=== PATIENT | female | born 1990 | race Hispanic/Latino ===

== ENCOUNTER 2016-07-11 05:50 | Emergency (ER) | payer BC ==
[2016-07-11 05:56] VITALS: BMI 17.9
[2016-07-11] MEDS ORDERED: Sodium Chloride 0.9% 1,000 ML IV STA (06:14)
[2016-07-11] MEDS ORDERED: Famotidine 20mg/50ml 50 ML IVPB STA (06:16)
--- NOTE | 2016-07-11 06:22 | ED PDOC ---
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 Pain is crampy non radiating. Some nausea. No vomiting. No fever. She also has mid pelvic pain that feels sharp when she urinates with frequency. No back pain. No vaginal bleeding. No diarrhea or constipation. PMD: None Loss Prevention Representative: She sees a doctor at [facility] who confirmed an IUP. Past Medical History - Provider Review Nursing Documentation Reviewed: Yes - Infectious Disease Hx of Infectious Diseases: None - Cardiac Hx Cardiac Disorders: No - Pulmonary Hx Respiratory Disorders: No - Neurological Hx Neurological Disorder: No - HEENT Hx HEENT Disorder: No - Renal Hx Renal Disorder: Yes Other/Comment: BLOOD IN URINE, MSK (medullary sponge kidney) - Endocrine/Metabolic Hx Endocrine Disorders: Yes Other/Comment: Hypoglycemia - Hematological/Oncological Hx Blood Disorders: Yes Other/Comment: Factor XI, Factor XII - Integumentary Hx Dermatological Disorder: No - Musculoskeletal/Rheumatological Hx Musculoskeletal Disorders: No - Gastrointestinal Hx Gastrointestinal Disorders: No Hx Gastroesophageal Reflux: Yes Hx Irritable Bowel: Yes Other/Comment: esophagitis - Genitourinary/Gynecological Hx Genitourinary Disorders: No - Psychiatric Hx Psychophysiologic Disorder: Yes Hx Depression: Yes Hx Panic Disorder: Yes Hx Substance Use: No - Surgical History Hx Appendectomy: Yes Hx Dilation and Curettage: Yes (x2) Other/Comment: CYSTOSCOPY, 2X - Anesthesia Hx Anesthesia: Yes Hx Anesthesia Reactions: No Hx Malignant Hyperthermia: No Family/Social History - Physician Review Nursing Documentation Reviewed: Yes Family/Social History: No Known Family HX Smoking Status: Never Smoked Hx Alcohol Use: No Hx Substance Use: No Allergies/Home Meds Allergies/Adverse Reactions: Allergies amoxicillin Allergy (Verified 05/06/16 15:53) URTICARIA ciprofloxacin [From Cipro] Allergy (Verified 05/06/16 15:53) URTICARIA ciprofloxacin HCl [From Cipro] Allergy (Verified 05/06/16 15:53) URTICARIA doxycycline Allergy (Verified 05/06/16 15:53) URTICARIA Penicillins Allergy (Verified 05/06/16 15:53) URTICARIA phenytoin sodium [From Dilantin] Allergy (Verified 05/06/16 15:53) URTICARIA phenytoin sodium extended [From Dilantin] Allergy (Verified 05/06/16 15:53) URTICARIA sulfamethoxazole [From Bactrim] Allergy (Verified 05/06/16 15:53) URTICARIA trimethoprim [From Bactrim] Allergy (Verified 05/06/16 15:53) URTICARIA Home Medications: Home Meds Medication Instructions Recorded Confirmed QUEtiapine [Seroquel XR] 50 mg PO DAILY 05/06/16 05/06/16 clonazePAM [Klonopin] 0.5 mg PO PRN PRN 05/06/16 05/06/16 Review of Systems - Physician Review All systems were reviewed & negative as marked: Yes - Review of Systems Constitutional: Normal Eyes: Normal ENT: Normal Respiratory: Normal Cardiovascular: Normal Gastrointestinal: Abdominal Pain Genitourinary Female: Dysuria, Frequency. absent: Hematuria, Vaginal Bleeding, Vaginal Discharge Musculoskeletal: Normal. absent: Back Pain Skin: Normal Neurological: Normal Endocrine: Normal Hemo/Lymphatic: Normal Psychiatric: Normal Physical Exam Vital Signs Reviewed: Yes Vital Signs Temp Pulse Resp BP Pulse Ox 07/11/16 06:15 98.1 F 72 16 137/84 98 Temperature: Afebrile Blood Pressure: Normal Pulse: Regular Respiratory Rate: Normal Appearance: Positive for: Well-Appearing, Non-Toxic, Comfortable Pain Distress: None Mental Status: Positive for: Alert and Oriented X 3 - Systems Exam Head: Present: Atraumatic, Normocephalic Pupils: Present: PERRL Extroacular Muscles: Present: EOMI Conjunctiva: Present: Normal Mouth: Present: Moist Mucous Membranes Neck: Present: Normal Range of Motion Respiratory/Chest: Present: Clear to Auscultation, Good Air Exchange. No: Respiratory Distress, Accessory Muscle Use Cardiovascular: Present: Regular Rate and Rhythm, Normal S1, S2. No: Murmurs Abdomen: Present: Tenderness (left upper and middle), Normal Bowel Sounds. No: Distention, Peritoneal Signs Back: Present: Normal Inspection Upper Extremity: Present: Normal Inspection. No: Cyanosis, Edema Lower Extremity: Present: Normal Inspection. No: Edema Neurological: Present: GCS=15, CN II-XII Intact, Speech Normal Skin: Present: Warm, Dry, Normal Color. No: Rashes Psychiatric: Present: Alert, Oriented x 3, Normal Insight, Normal Concentration Medical Decision Making ED Course and Treatment: 07/11/16 06:36 26 yo female with left sided abdominal pain in r/o threatened vs gastritis vs pancreatitis; Urinary complaints r/o UTI -- Labs -- Pepcid IV -- Type and Screen -- TV sono -- Reevaluate and disposition 07/11/16 07:[address] Garcia to f/u pelvic exam and tvsono and labs and reevaluate and disposition. - Lab Interpretations Lab Results: 07/11/16 06:00 Lab Results 07/11/16 06:00: WBC 6.2 D, RBC 5.09, Hgb 14.4, Hct 41.6, MCV 81.7, MCH 28.3, MCHC 34.6, RDW 12.8, Plt Count 274, MPV 12.0 H, Gran % 51.1, Lymph % (Auto) 34.7 , [place] % (Auto) 10.5 H, Eos % (Auto) 3.1, Baso % (Auto) 0.6, Gran # 3.15, Lymph # 2.1, [place] # 0.7 H, Eos # 0.2, Baso # 0.04 - RAD Interpretation Radiology Orders: 07/11/16 06:14 TRANSVAGINAL [US] Stat - Medication Orders Current Medication Orders: Sodium Chloride (Sodium Chloride 0.9%) 1,000 mls @ 100 mls/hr IV .Q10H STA Stop: 07/11/16 16:13 Last Admin: 07/11/16 06:31 Dose: 100 MLS/HR eMAR Start Stop Document 07/11/16 06:31 YP (Rec: 07/11/16 06:31 YP [id number]) Intravenous Solution Start Date 07/11/16 Start Time 06:31 Discontinued Medications Famotidine (Pepcid 20mg/50ml Premix) 50 mls @ 100 mls/hr IVPB STAT STA Stop: 07/11/16 06:45 Last Admin: 07/11/16 06:31 Dose: 100 MLS/HR eMAR Start Stop Document 07/11/16 06:31 YP (Rec: 07/11/16 06:31 YP [id number]) Intravenous Solution Start Date 07/11/16 Start Time 06:31 End Date 07/11/16 End time 07:01 Total Infusion Time 30 Disposition/Present on Arrival - Present on Arrival Any Indicators Present on Arrival: No History of DVT/PE: No History of Uncontrolled Diabetes: No Urinary Catheter: No History of Decub. Ulcer: No History Surgical Site Infection Following: None - Disposition Have Diagnosis and Disposition been Completed?: No Diagnosis: Abdominal pain, Disposition Time: 07:13 Condition: FAIR
[2016-07-11 06:25] VITALS: RESP 16; TEMP 98.1; O2SAT 98
[2016-07-11 06:43] LABS: ADD MANUAL DIFF? NO
[2016-07-11 06:54] LABS: BASO # 0.04 K/mm3 (0.0-2.0); BASO % 0.6 % (0.0-3.0); EOS # 0.2 (0.0-0.7); EOS % 3.1 % (1.5-5.0); GRAN # 3.15 (1.4-6.5); GRAN % 51.1 % (50.0-68.0); HEMATOCRIT 41.6 % (36.0-48.0); LYMPH # 2.1 (1.2-3.4); LYMPH % 34.7 % (22.0-35.0); MEAN CELL VOLUME 81.7 fL (80.0-105.0); MEAN CORPUSCULAR HEMOGLOBIN 28.3 pg (25.0-35.0); MEAN CORPUSCULAR HGB CONC 34.6 g/dl (31.0-37.0); MONO # 0.7 (0.1-0.6); MONO % 10.5 % (1.0-6.0); PLATELET COUNT 274 10^3/uL (120.0-450.0); RED CELL DISTRIBUTION WIDTH 12.8 % (11.5-14.5); WHITE BLOOD COUNT 6.2 10^3/ul (4.5-11.0)
[2016-07-11 07:10] LABS: INR 1.16 (0.93-1.08); PARTIAL THROMBOPLASTIN TIME 34.3 Seconds (23.7-30.8)
[2016-07-11 07:13] LABS: ALB/GLOB RATIO 1.3 (1.1-1.8); ALKALINE PHOSPHATASE 69 U/L (38-133); ALT/SGPT 11 U/L (7-56); AST/SGOT 37 U/L (15-39); BILIRUBIN,TOTAL 0.5 mg/dL (0.2-1.3); BLOOD UREA NITROGEN 12 mg/dL (7-21); CALCIUM 9.8 mg/dL (8.4-10.5); CARBON DIOXIDE 28 mmol/L (21-33); CHLORIDE 101 mmol/L (98-107); GFR AFRICAN-AMERICAN > 60; GLUCOSE,RANDOM 96 mg/dL (70-110); LIPASE 190 U/L (23-300); POTASSIUM 4.1 mmol/L (3.6-5.0); SODIUM 138 mmol/L (132-148); TOTAL PROTEIN 8.8 g/dL (5.8-8.3)
[2016-07-11 07:14] LABS: URINE BILIRUBIN NEGATIVE (NEGATIVE); URINE BLOOD NEGATIVE (NEGATIVE); URINE GLUCOSE (UA) NEGATIVE (NEGATIVE); URINE KETONE NEGATIVE (NEGATIVE); URINE LEUKOCYTE ESTERASE NEGATIVE Leu/uL (NEGATIVE); URINE PROTEIN TRACE mg/dL (<30 mg/dL); URINE UROBILINOGEN 0.2 E.U./dL (<1 E.U./dL)
[2016-07-11 07:22] LABS: URINE APPEARANCE CLEAR (CLEAR); URINE COLOR LIGHT YELLOW (YELLOW)
--- NOTE | 2016-07-11 07:34 | ED PDOC ---
Physical Exam Vital Signs Temp Pulse Resp BP Pulse Ox 07/11/16 07:26 68 16 111/68 98 07/11/16 06:15 98.1 F 72 16 137/84 98 Medical Decision Making ED Course and Treatment: 07/11/16 07:00 Patient signed out to me by Dr. Johnson pending pelvic exam, ultrasound, labs, reevaluation, and final disposition. 07/11/16 09:34 Discussed results with patient. On reexamination, patient's abdomen is soft, no tenderness to palpation. Patient denies pelvic exam. Instructed patient to follow up with OB or return if symptoms worsen. Patient agrees with plan. Patient stable for discharge. All questions answered. 07/11/16 10:[address] Umanzor, OB production expediter, who recommends repeat Beta HCG in 2 days and advised to follow up outpatient. - Lab Interpretations Lab Results: 07/11/16 06:00 07/11/16 06:00 Lab Results 07/11/16 08:35: Blood Type Confirm O POSITIVE 07/11/16 06:10: Urine Color Light yellow, Urine Appearance Clear, Urine pH 8.0, Ur Specific [place] 1.015, Urine Protein Trace H, Urine Glucose (UA) Negative, Urine Ketones Negative, Urine Blood Negative, Urine Nitrate Negative, Urine Bilirubin Negative, Urine Urobilinogen 0.2, Ur Leukocyte Esterase Negative, Urine RBC Negative, Urine WBC 0 - 2, Ur Epithelial Cells 1 - 3, Amorphous Sediment Moderate, Urine Bacteria Few 07/11/16 06:00: WBC 6.2 D, RBC 5.09, Hgb 14.4, Hct 41.6, MCV 81.7, MCH 28.3, MCHC 34.6, RDW 12.8, Plt Count 274, MPV 12.0 H, Gran % 51.1, Lymph % (Auto) 34.7 , [place] % (Auto) 10.5 H, Eos % (Auto) 3.1, Baso % (Auto) 0.6, Gran # 3.15, Lymph # 2.1, [place] # 0.7 H, Eos # 0.2, Baso # 0.04, PT 12.5 H, INR 1.16 H, APTT 34.3 H , Sodium 138, Potassium 4.1, Chloride 101, Carbon Dioxide 28, Anion Gap 13, BUN 12, Creatinine 0.8, Est GFR ( Amer) > 60, Est GFR (Non-Af Amer) > 60, Random Glucose 96, Calcium 9.8, Total Bilirubin 0.5, AST 37, ALT 11, Alkaline Phosphatase 69, Total Protein 8.8 H, Albumin 4.9 H, Globulin 3.9, Albumin/ Globulin Ratio 1.3, Lipase 190, Beta HCG, Quant 4868.20 H, Blood Type O POSITIVE , Antibody Screen Negative, BBK History Checked No verified bt - RAD Interpretation Narrative RAD Interpretations (Text): PROCEDURE: OB Pelvic Ultrasound Restoration Officer : Kenya Frances MD HISTORY: Left-sided abdominal pain, 6 wks ; no bleeding FINDINGS: UTERUS: Gestational sac: Single intrauterine gestational sac out of range for measurements. Yolk sac and pole are not yet identified. Uterus measures 7.9 x 4.2 x 5.7 cm. Anteverted and normal in size. CERVIX: Long and closed. No cervical abnormality seen. RIGHT OVARY: Measures 2.9 x 1.7 x 3.7 cm. No mass lesion. Normal flow. LEFT OVARY: Measures 2.2 x 1.5 x 2.5 cm. No solid mass. Normal flow. FREE FLUID: None. IMPRESSION: Single intrauterine gestational sac out of range for measurements. No yolk sac or pole identified. Clinical follow-up and ultrasound follow-up is advised. No adnexal mass or free fluid in the pelvis. Radiology Orders: 07/11/16 06:14 OB TRANSVAGINAL [US] Stat Legal Associate: Radiologist - Medication Orders Current Medication Orders: Sodium Chloride (Sodium Chloride 0.9%) 1,000 mls @ 100 mls/hr IV .Q10H STA Stop: 07/11/16 16:13 Last Admin: 07/11/16 06:31 Dose: 100 MLS/HR eMAR Start Stop Document 07/11/16 06:31 YP (Rec: 07/11/16 06:31 YP [id number]) Intravenous Solution Start Date 07/11/16 Start Time 06:31 Discontinued Medications Famotidine (Pepcid 20mg/50ml Premix) 50 mls @ 100 mls/hr IVPB STAT STA Stop: 07/11/16 06:45 Last Admin: 07/11/16 06:31 Dose: 100 MLS/HR eMAR Start Stop Document 07/11/16 06:31 YP (Rec: 07/11/16 06:31 YP [id number]) Intravenous Solution Start Date 07/11/16 Start Time 06:31 End Date 07/11/16 End time 07:01 Total Infusion Time 30 Disposition/Present on Arrival - Present on Arrival Any Indicators Present on Arrival: No History of DVT/PE: No History of Uncontrolled Diabetes: No Urinary Catheter: No History of Decub. Ulcer: No History Surgical Site Infection Following: None - Disposition Have Diagnosis and Disposition been Completed?: No Diagnosis: Threatened Disposition: HOME/ ROUTINE Disposition Time: 09:33 Patient Problems: Current Active Problems Problem Status Diagnosed Threatened Acute Condition: FAIR Discharge Instructions (ExitCare): Threatened Miscarriage (ED) Additional Instructions: please see obstetrician/gynecologist. return to er with worsening symptoms or concerns. Referrals: PCP,NO [Primary Care Provider] - Follow up with primary Ashlee Umanzor MD [Medical Doctor] - Follow up with primary
[2016-07-11 07:39] LABS: URINE AMORPHOUS SEDIMENT MODERATE; URINE BACTERIA FEW (NEG); URINE RBC NEGATIVE /hpf (0-2); URINE WBC 0 - 2 /hpf (0-6)
--- NOTE | 2016-07-11 09:31 | US ---
PROCEDURE: OB Pelvic Ultrasound HISTORY: Left-sided abdominal pain, 6 wks ; no bleeding COMPARISON: None available. FINDINGS: UTERUS: Gestational sac: Single intrauterine gestational sac out of range for measurements. Yolk sac and pole are not yet identified. Uterus measures 7.9 x 4.2 x 5.7 cm. Anteverted and normal in size. CERVIX: Long and closed. No cervical abnormality seen. RIGHT OVARY: Measures 2.9 x 1.7 x 3.7 cm. No mass lesion. Normal flow. LEFT OVARY: Measures 2.2 x 1.5 x 2.5 cm. No solid mass. Normal flow. FREE FLUID: None. OTHER FINDINGS: None. IMPRESSION: Single intrauterine gestational sac out of range for measurements. No yolk sac or pole identified. Clinical follow-up and ultrasound follow-up is advised. No adnexal mass or free fluid in the pelvis.
[2016-07-11 10:04] VITALS: BP 107/55; PULSE 66
== END 2016-07-11 10:17 | disposition home or self-care (01) ==
LOC: ED 05:50
DX: O20.0 Threatened abortion (principal); Z3A.01 Less than 8 weeks gestation of pregnancy
CPT/HCPCS: 76817; 80053; 81001; 83690; 84702; 85025; 85610; 85730; 86850; 86900; 87086; 87491; 87591; 96365; 99284; J7040

== ENCOUNTER 2016-07-18 02:32 | Emergency (ER) | payer BC ==
[2016-07-18 02:39] VITALS: BMI 18.0
[2016-07-18 02:41] VITALS: RESP 18
[2016-07-18 03:13] LABS: URINE BILIRUBIN NEGATIVE (NEGATIVE); URINE BLOOD MODERATE (NEGATIVE); URINE GLUCOSE (UA) NEGATIVE (NEGATIVE); URINE KETONE NEGATIVE (NEGATIVE); URINE LEUKOCYTE ESTERASE NEGATIVE Leu/uL (NEGATIVE); URINE PROTEIN NEGATIVE mg/dL (<30 mg/dL); URINE UROBILINOGEN 0.2 E.U./dL (<1 E.U./dL)
[2016-07-18 03:23] LABS: URINE APPEARANCE SLIGHT-CLOUDY (CLEAR); URINE COLOR YELLOW (YELLOW)
[2016-07-18 03:25] LABS: URINE BACTERIA MOD (NEG); URINE EPITHELIAL CELLS 0 - 2 /hpf (0-5)
[2016-07-18 03:51] LABS: ADD MANUAL DIFF? NO
[2016-07-18 03:57] LABS: BASO # 0.03 K/mm3 (0.0-2.0); BASO % 0.6 % (0.0-3.0); EOS # 0.2 (0.0-0.7); EOS % 2.9 % (1.5-5.0); GRAN # 2.64 (1.4-6.5); GRAN % 50.2 % (50.0-68.0); HEMATOCRIT 36.7 % (36.0-48.0); LYMPH # 1.6 (1.2-3.4); LYMPH % 30.9 % (22.0-35.0); MEAN CELL VOLUME 82.5 fL (80.0-105.0); MEAN CORPUSCULAR HEMOGLOBIN 28.3 pg (25.0-35.0); MEAN CORPUSCULAR HGB CONC 34.3 g/dl (31.0-37.0); MONO # 0.8 (0.1-0.6); MONO % 15.4 % (1.0-6.0); PLATELET COUNT 244 10^3/uL (120.0-450.0); RED CELL DISTRIBUTION WIDTH 12.7 % (11.5-14.5); WHITE BLOOD COUNT 5.3 10^3/ul (4.5-11.0)
[2016-07-18 04:05] LABS: ALB/GLOB RATIO 1.3 (1.1-1.8); ALKALINE PHOSPHATASE 57 U/L (38-133); ALT/SGPT 8 U/L (7-56); AST/SGOT 20 U/L (15-39); BILIRUBIN,TOTAL 0.5 mg/dL (0.2-1.3); BLOOD UREA NITROGEN 14 mg/dL (7-21); CALCIUM 9.2 mg/dL (8.4-10.5); CARBON DIOXIDE 26 mmol/L (21-33); CHLORIDE 99 mmol/L (98-107); GFR AFRICAN-AMERICAN > 60; GLUCOSE,RANDOM 116 mg/dL (70-110); POTASSIUM 3.7 mmol/L (3.6-5.0); SODIUM 134 mmol/L (132-148); TOTAL PROTEIN 7.4 g/dL (5.8-8.3)
--- NOTE | 2016-07-18 04:10 | ED PDOC ---
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 The patient notes that she noted blood on her toilette paper while wiping after urination. She noted that the reddish-brown coloring had particulate matter in it. The patient notes that the bleeding is associated with lower abdominal cramps and left lower abdominal pain. The patient was recently seen 07/11/16 for nausea. At that time she was found to have an hCG of 4800. The patient reports that he last OB visit was 1 week ago and confirmed intra uterine . At that time her IUP was dated at 5 weeks and 3 days. Today, her IUP is estimated to be dated 6 weeks and 4 days. At this point in the , the patient has not taken any vitamins. The patient reports burning on urination, but states that this has been present for approximately 1 year. Gonorrhea and chlamydia tests were negative 07/11/16. The patient denies fever, chills, headache, chest pain, shortness of breath, changes in bowel/bladder habits, and extremity weakness/paresthesias. (Sebastien Ferris) Past Medical History - Provider Review Nursing Documentation Reviewed: Yes - Travel History Have you recently traveled outside [place] w/in the past 3 mons?: No - Infectious Disease Hx of Infectious Diseases: None - Tetanus Immunization Tetanus Immunization: Unknown - Cardiac Hx Cardiac Disorders: No - Pulmonary Hx Respiratory Disorders: No - Neurological Hx Neurological Disorder: No - HEENT Hx HEENT Disorder: No - Renal Hx Renal Disorder: Yes Other/Comment: BLOOD IN URINE, MSK (medullary sponge kidney) - Endocrine/Metabolic Hx Endocrine Disorders: Yes Other/Comment: Hypoglycemia - Hematological/Oncological Hx Blood Disorders: Yes Other/Comment: Factor XI, Factor XII - Integumentary Hx Dermatological Disorder: No - Musculoskeletal/Rheumatological Hx Musculoskeletal Disorders: No - Gastrointestinal Hx Gastrointestinal Disorders: No Hx Gastroesophageal Reflux: Yes Hx Irritable Bowel: Yes Other/Comment: esophagitis - Genitourinary/Gynecological Hx Genitourinary Disorders: No - Psychiatric Hx Psychophysiologic Disorder: Yes Hx Depression: Yes Hx Panic Disorder: Yes Hx Substance Use: No - Surgical History Hx Appendectomy: Yes Hx Dilation and Curettage: Yes (x2) Other/Comment: CYSTOSCOPY, 2X - Anesthesia Hx Anesthesia: Yes Hx Anesthesia Reactions: No Hx Malignant Hyperthermia: No <Sebastien Ferris - Last Filed: 07/18/16 05:48> <Edgar Munoz - Last Filed: 07/18/16 06:04> - Patient History Narrative Patient History: This is a 26 year old female with 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 medullary sponge kidney (Sebastien Ferris) Family/Social History - Physician Review Nursing Documentation Reviewed: Yes Family/Social History: No Known Family HX Smoking Status: Never Smoked Hx Alcohol Use: No Hx Substance Use: No <Sebastien Ferris - Last Filed: 07/18/16 05:48> Allergies/Home Meds <Sebastien Ferris - Last Filed: 07/18/16 05:48> <Edgar Munoz - Last Filed: 07/18/16 06:04> Allergies/Adverse Reactions: Allergies amoxicillin Allergy (Verified 05/06/16 15:53) URTICARIA ciprofloxacin [From Cipro] Allergy (Verified 05/06/16 15:53) URTICARIA ciprofloxacin HCl [From Cipro] Allergy (Verified 05/06/16 15:53) URTICARIA doxycycline Allergy (Verified 05/06/16 15:53) URTICARIA Penicillins Allergy (Verified 05/06/16 15:53) URTICARIA phenytoin sodium [From Dilantin] Allergy (Verified 05/06/16 15:53) URTICARIA phenytoin sodium extended [From Dilantin] Allergy (Verified 05/06/16 15:53) URTICARIA sulfamethoxazole [From Bactrim] Allergy (Verified 05/06/16 15:53) URTICARIA trimethoprim [From Bactrim] Allergy (Verified 05/06/16 15:53) URTICARIA Home Medications: Home Meds Medication Instructions Recorded Confirmed QUEtiapine [Seroquel XR] 50 mg PO DAILY 05/06/16 05/06/16 clonazePAM [Klonopin] 0.5 mg PO PRN PRN 05/06/16 05/06/16 Review of Systems - Review of Systems Constitutional: absent: Fatigue, Fevers Eyes: absent: Vision Changes, Photophobia ENT: absent: Hearing Changes, Tinnitus Respiratory: absent: SOB, Cough Cardiovascular: absent: Chest Pain, Palpitations, Syncope Gastrointestinal: Abdominal Pain, Nausea. absent: Stool Changes, Constipation, Diarrhea, Vomiting, Hematochezia, Hematemesis Genitourinary Female: Dysuria, Vaginal Bleeding, Vaginal Discharge (white). absent: Frequency, Hematuria, Urine Output Changes Musculoskeletal: absent: Arthralgias, Back Pain Skin: absent: Rash Neurological: absent: Headache, Dizziness Endocrine: absent: Diaphoresis Hemo/Lymphatic: absent: Adenopathy Psychiatric: absent: Anxiety <Sebastien Ferris - Last Filed: 07/18/16 05:48> Physical Exam Vital Signs Reviewed: Yes Temperature: Afebrile Blood Pressure: Normal Pulse: Regular Respiratory Rate: Normal Appearance: Positive for: Well-Appearing, Non-Toxic, Comfortable Pain Distress: Mild Mental Status: Positive for: Alert and Oriented X 3 - Systems Exam Head: Present: Atraumatic, Normocephalic Pupils: Present: PERRL Extroacular Muscles: Present: EOMI Conjunctiva: Present: Normal Mouth: Present: Moist Mucous Membranes Neck: Present: Normal Range of Motion. No: Lymphadenopathy Respiratory/Chest: Present: Clear to Auscultation, Good Air Exchange. No: Respiratory Distress, Accessory Muscle Use Cardiovascular: Present: Regular Rate and Rhythm, Normal S1, S2. No: Murmurs Abdomen: Present: Tenderness (LLQ), Normal Bowel Sounds. No: Distention, Peritoneal Signs Genitourinary/Pelvic Exam: Present: Vaginal Bleeding. No: Vaginal Lesions Upper Extremity: Present: Normal Inspection, Normal ROM, NORMAL PULSES, Neurovascularly Intact, Capillary Refill < 2s. No: Cyanosis, Edema Lower Extremity: Present: Normal Inspection, NORMAL PULSES, Normal ROM, Neurovascularly Intact. No: Edema Neurological: Present: GCS=15, CN II-XII Intact Skin: Present: Warm, Dry, Normal Color. No: Rashes Psychiatric: Present: Alert, Oriented x 3 <Sebastien Ferris - Last Filed: 07/18/16 05:48> Vital Signs Temp Pulse Resp BP Pulse Ox 07/18/16 05:47 97.6 F 98 H 18 132/95 H 100 07/18/16 04:49 97.6 F 83 18 119/77 98 07/18/16 02:39 98.1 F 78 18 122/74 99 Medical Decision Making Re-evaluation Time: 05:15 (speculum examination) Reassessment Condition: Re-examined - Lab Interpretations Interpretation: No clinic. 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 The patient appears clinically stable at this time. Differential: Implantation Bleeding Plan: Urine UA Urine C&S CBC, CMP, PTT, B-hCG Transvaginal US Type and Screen IVF NS bolus Prior Visits: No inpatient admissions Progress Note: Patient seen and examined at the bedside. The patient appears in mild distress 2/2 to anxiety regarding her . The patient has no signs of overt bleeding or blood loss anemia. The patient is pending transvaginal US for evaluation of and the cervix. 07/18/16 05:54 Patient re-examined at the bedside. Transvaginal US likely indicative of miscarriage. Speculum exam preformed with supervisor sample preparation RN. Patient tolerated the examination well. Blood visualized in vaginal vault without presence of clots. Patients B-hCG down trending since her last visit. Patient informed that she needs to follow up with her OB within 48hours. The patient was counselled about the possibility of having a miscarriage. The patient understands her clinical situation. She was also advised to begin vitamin therapy. The patient is agreeable with discharge at this time after discussion of all issues. The patient is medically safe for discharge. (Sebastien Ferris) 07/18/16 04:26 Patient seen and examined with resident. Came up with treatment and disposition plan with resident. Patient is a 6w4d female who presents to the ed for evaluation of vaginal bleeding associated with lower abdominal cramps. Beta HCG of 4401 which is a slight decrease from previous visit a week ago. Patient is strongly advised to follow up with OB within few days. On discharge patient' s abdomen is soft nontender nondistended, patient denies any abdominal discomfort. Patient states that she has a system support analyst with whom she will follow-up. Pt states she understands to return to the ER right away for new or worsening symptoms or for inability to f/u with PMD or specialist as instructed. Patient states that she fully agrees with and understands discharge instructions. States that she agrees with the plan and disposition. Verbalized and repeated discharge instructions and plan. I have given the patient opportunity to ask any additional questions. (Edgar Munoz) - Lab Interpretations Lab Results: 07/18/16 03:15 07/18/16 03:15 Lab Results 07/18/16 03:15: WBC 5.3, RBC 4.45, Hgb 12.6, Hct 36.7, MCV 82.5, MCH 28.3, MCHC 34.3, RDW 12.7, Plt Count 244, MPV 12.0 H, Gran % 50.2, Lymph % (Auto) 30.9, [place] % (Auto) 15.4 H, Eos % (Auto) 2.9, Baso % (Auto) 0.6, Gran # 2.64, Lymph # 1.6, [place] # 0.8 H, Eos # 0.2, Baso # 0.03, APTT 33.1 H, Sodium 134, Potassium 3.7, Chloride 99, Carbon Dioxide 26, Anion Gap 13, BUN 14, Creatinine 0.8, Est GFR ( Amer) > 60, Est GFR (Non-Af Amer) > 60, Random Glucose 116 H, Calcium 9.2, Total Bilirubin 0.5, AST 20, ALT 8, Alkaline Phosphatase 57, Total Protein 7.4, Albumin 4.3, Globulin 3.2, Albumin/Globulin Ratio 1.3, Beta HCG, Quant 4401.80 H, Blood Type O POSITIVE, Antibody Screen Negative, BBK History Checked Patient has bt 07/18/16 02:51: Urine Color Yellow, Urine Appearance Slight-cloudy, Urine pH 7.0 , Ur Specific [place] 1.020, Urine Protein Negative, Urine Glucose (UA) Negative , Urine Ketones Negative, Urine Blood Moderate H, Urine Nitrate Negative, Urine Bilirubin Negative, Urine Urobilinogen 0.2, Ur Leukocyte Esterase Negative, Urine RBC 1 - 3, Urine WBC 1 - 3, Ur Epithelial Cells 0 - 2, Urine Bacteria Mod , Urine HCG, Qual Positive - RAD Interpretation Narrative RAD Interpretations (Text): 07/18/16 05:49 Transvaginal US FINDINGS: Gestation: There is comparison to previous ultrasound dated July 11, 2016 at which time there was a gestational sac but no pole demonstrated. There is an 11 mm gestational sac which corresponds to a 5 week 1 day gestation. No yolk sac, or pole is demonstrated, heart motion is not measured. Provided dated last menstrual period is June 01, 2016, with estimated gestational age by LMP of 6 weeks 5 days. Placenta/amniotic fluid: Cannot be adequately evaluated due to the early gestational age. Uterus/cervix: The uterus measures 7.3 x 4.0 x 5.1 cm. No myometrial mass. Ovaries: Right ovary measures 3.1 x 2.4 x 2.6 cm. Left ovary measures 2.7 x 2.0 x 2.0 cm. No mass. Free fluid: No fluid in the cul-de-sac. IMPRESSION: Empty gestational sac, although noting that gestational sac is increased in size compared to the study of one week prior. There remains a small chance that this could progress to normal , noting recommendation that 2 weeks followup be performed and that mean sac diameter be 2.5cm prior to confirmation of failure. Correlation with serial beta HCG advised noting possibility that this could represent a pseuogestational sac of ectopic . Bilaterally normal ovaries. (Sebastien Ferris) Radiology Orders: 07/18/16 02:46 OB TRANSVAGINAL [US] Stat - Medication Orders Current Medication Orders: Discontinued Medications Sodium Chloride (Sodium Chloride 0.9%) 1,000 mls @ 999 mls/hr IV .Q1H1M STA Stop: 07/18/16 05:19 Last Admin: 07/18/16 04:42 Dose: 999 MLS/HR eMAR Start Stop Document 07/18/16 04:42 GMD (Rec: 07/18/16 04:42 GMD [facility] [place], [id number]) Intravenous Solution Start Date 07/18/16 Start Time 04:42 End Date 07/18/16 End time 05:43 Total Infusion Time 61 <Sebastien Ferris - Last Filed: 07/18/16 05:48> - PA / [employer]IPMENT TENDER / Resident Statement ROBBIE has reviewed & agrees with the documentation as recorded. / has examined the patient and agrees with the treatment plan. <Edgar Munoz - Last Filed: 07/18/16 06:04> - Scribe Statement Gwendolyn Cruz All medical record entries made by the Scribe were at my direction and personally dictated by me. I have reviewed the chart and agree that the record accurately reflects my personal performance of the history, physical exam, medical decision making, and the department course for this patient. I have also personally directed, reviewed, and agree with the discharge instructions and disposition. (Edgar Munoz) Disposition/Present on Arrival - Present on Arrival Any Indicators Present on Arrival: No History of DVT/PE: No History of Uncontrolled Diabetes: No Urinary Catheter: No History of Decub. Ulcer: No History Surgical Site Infection Following: None - Disposition Have Diagnosis and Disposition been Completed?: Yes Disposition Time: 05:30 <Sebastien Ferris - Last Filed: 07/18/16 05:48> <Edgar Munoz - Last Filed: 07/18/16 06:04> - Disposition Diagnosis: , Uterine bleeding Disposition: HOME/ ROUTINE Condition: FAIR Discharge Instructions (ExitCare): Vitamins (By mouth), First Trimester Vaginal Bleed (ED) Print Language: CYMRO Additional Instructions: 1.) Follow up with HOOK AND EYE SEWING MACHINE OPERATOR within 48 hours for evaluation 2.) If symptoms return, please return to the ED for evaluation 3.) Follow up with PMD within 48 hours for evaluation 4.) Recommend starting vitamins
[2016-07-18] MEDS ORDERED: Sodium Chloride 0.9% 1,000 ML IV STA (04:19)
[2016-07-18] MEDS ORDERED: Sodium Chloride 0.9% 1,000 ML IV SCH (04:30)
[2016-07-18 04:55] VITALS: TEMP 97.6
--- NOTE | 2016-07-18 05:11 | US ---
EXAM: US , Transvaginal. CLINICAL HISTORY: 26 years old, female; Pain; complicated by abdominal or pelvic pain; Lower; First trimester; Gestational age or lmp: 06/01/2016; ; Additional info: Vaginal bleeding TECHNIQUE: Real-time transvaginal obstetrical ultrasound of the maternal pelvis and a first trimester with image documentation. Transvaginal imaging was used for better evaluation of the fetus and adnexa. EXAM DATE/TIME: Exam ordered 07/18/2016 2:46 AM COMPARISON: No relevant prior studies available. FINDINGS: Gestation: There is comparison to previous ultrasound dated July 11, 2016 at which time there was a gestational sac but no pole demonstrated. There is an 11 mm gestational sac which corresponds to a 5 week 1 day gestation. No yolk sac, or pole is demonstrated, heart motion is not measured. Provided dated last menstrual period is June 01, 2016, with estimated gestational age by LMP of 6 weeks 5 days. Placenta/amniotic fluid: Cannot be adequately evaluated due to the early gestational age. Uterus/cervix: The uterus measures 7.3 x 4.0 x 5.1 cm. No myometrial mass. Ovaries: Right ovary measures 3.1 x 2.4 x 2.6 cm. Left ovary measures 2.7 x 2.0 x 2.0 cm. No mass. Free fluid: No fluid in the cul-de-sac. IMPRESSION: Empty gestational sac, although noting that gestational sac is increased in size compared to the study of one week prior. There remains a small chance that this could progress to normal , noting recommendation that 2 weeks followup be performed and that mean sac diameter be 2.5cm prior to confirmation of failure. Correlation with serial beta HCG advised noting possibility that this could represent a pseuogestational sac of ectopic . Bilaterally normal ovaries.
[2016-07-18 05:48] VITALS: BP 132/95; PULSE 98; O2SAT 100
== END 2016-07-18 05:58 | disposition home or self-care (01) ==
LOC: ED 02:32
DX: O26.91 Pregnancy related conditions, unspecified, first trimester (principal); Z3A.01 Less than 8 weeks gestation of pregnancy; N93.9 Abnormal uterine and vaginal bleeding, unspecified
CPT/HCPCS: 76817; 80053; 81001; 84702; 84703; 85025; 85730; 86850; 86900; 87086; 96360; 99285; J7040

== ENCOUNTER 2016-09-02 04:17 | Emergency (ER) | payer BC ==
[2016-09-02 04:21] VITALS: BMI 18.3
[2016-09-02 04:26] VITALS: O2SAT 99
--- NOTE | 2016-09-02 05:23 | ED PDOC ---
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 States she was diagnosed with UTI at that time, and was started on antibiotics. States that symptoms still persist despite taking the antibiotics. Denies fever, chills, headache, dizziness, chest pain, shortness of breath, nausea, vomiting, diarrhea, abdominal pain, back pain, or any other complaints at this time. Time/Duration: < week (2 days ) Symptom Onset: Gradual Severity Level: Mild Activities at Onset: Light Past Medical History - Provider Review Nursing Documentation Reviewed: Yes - Infectious Disease Hx of Infectious Diseases: None - Tetanus Immunization Tetanus Immunization: Unknown - Cardiac Hx Cardiac Disorders: No - Pulmonary Hx Respiratory Disorders: No - Neurological Hx Neurological Disorder: No - HEENT Hx HEENT Disorder: No - Renal Hx Renal Disorder: Yes Other/Comment: BLOOD IN URINE, MSK (medullary sponge kidney) - Endocrine/Metabolic Hx Endocrine Disorders: Yes Other/Comment: Hypoglycemia - Hematological/Oncological Hx Blood Disorders: Yes Other/Comment: Factor XI, Factor XII - Integumentary Hx Dermatological Disorder: No - Musculoskeletal/Rheumatological Hx Musculoskeletal Disorders: No - Gastrointestinal Hx Gastrointestinal Disorders: No Hx Gastroesophageal Reflux: Yes Hx Irritable Bowel: Yes Other/Comment: esophagitis - Genitourinary/Gynecological Hx Genitourinary Disorders: No - Psychiatric Hx Psychophysiologic Disorder: Yes Hx Depression: Yes Hx Panic Disorder: Yes Hx Substance Use: No - Surgical History Hx Appendectomy: Yes Hx Dilation and Curettage: Yes (3) Other/Comment: CYSTOSCOPY, 2X - Anesthesia Hx Anesthesia: Yes Hx Anesthesia Reactions: No Hx Malignant Hyperthermia: No Family/Social History - Physician Review Nursing Documentation Reviewed: Yes Family/Social History: No Known Family HX Smoking Status: e-cig Hx Alcohol Use: No Hx Substance Use: No Allergies/Home Meds Allergies/Adverse Reactions: Allergies amoxicillin Allergy (Verified 05/06/16 15:53) URTICARIA ciprofloxacin [From Cipro] Allergy (Verified 05/06/16 15:53) URTICARIA ciprofloxacin HCl [From Cipro] Allergy (Verified 05/06/16 15:53) URTICARIA doxycycline Allergy (Verified 05/06/16 15:53) URTICARIA Penicillins Allergy (Verified 05/06/16 15:53) URTICARIA phenytoin sodium [From Dilantin] Allergy (Verified 05/06/16 15:53) URTICARIA phenytoin sodium extended [From Dilantin] Allergy (Verified 05/06/16 15:53) URTICARIA sulfamethoxazole [From Bactrim] Allergy (Verified 05/06/16 15:53) URTICARIA trimethoprim [From Bactrim] Allergy (Verified 05/06/16 15:53) URTICARIA Home Medications: Home Meds Medication Instructions Recorded Confirmed QUEtiapine [Seroquel XR] 50 mg PO DAILY 05/06/16 09/02/16 clonazePAM [Klonopin] 0.5 mg PO PRN PRN 05/06/16 09/02/16 Bismuth Subsalicylate 15 ml PO DAILY 09/02/16 09/02/16 [Pepto-Bismol] Famotidine [Pepcid] 1 tab PO DAILY 09/02/16 09/02/16 Review of Systems - Physician Review All systems were reviewed & negative as marked: Yes - Review of Systems Constitutional: Normal. absent: Fatigue, Fevers ENT: Sore Throat, Other (ear pain ) Respiratory: Normal. absent: SOB, Cough, Sputum Cardiovascular: Normal. absent: Chest Pain Gastrointestinal: Normal. absent: Abdominal Pain, Diarrhea, Nausea, Vomiting Genitourinary Female: Dysuria Neurological: Normal. absent: Headache, Dizziness Psychiatric: Normal Physical Exam Vital Signs Temp Pulse Resp BP Pulse Ox 09/02/16 06:30 97.8 F 86 18 126/84 99 09/02/16 04:25 98.1 F 93 H 16 130/93 H 99 Temperature: Afebrile Blood Pressure: Normal Pulse: Regular Respiratory Rate: Normal Appearance: Positive for: Well-Appearing, Non-Toxic, Comfortable Pain Distress: None Mental Status: Positive for: Alert and Oriented X 3 - Systems Exam Head: Present: Atraumatic, Normocephalic Pupils: Present: PERRL Conjunctiva: Present: Normal Ears: Present: NORMAL TM, Normal Canal. No: Erythema, TM Bulging Mouth: Present: Moist Mucous Membranes Pharnyx: Present: Normal. No: ERYTHEMA, EXUDATE, TONSILS ENLARGED Neck: Present: Normal Range of Motion Respiratory/Chest: Present: Clear to Auscultation, Good Air Exchange. No: Respiratory Distress, Accessory Muscle Use Cardiovascular: Present: Regular Rate and Rhythm, Normal S1, S2. No: Murmurs Abdomen: Present: Normal Bowel Sounds. No: Tenderness, Distention, Peritoneal Signs Upper Extremity: Present: Normal Inspection. No: Cyanosis, Edema Lower Extremity: Present: Normal Inspection. No: Edema Neurological: Present: GCS=15, CN II-XII Intact, Speech Normal, Motor Func Grossly Intact, Normal Sensory Function Skin: Present: Warm, Dry, Normal Color. No: Rashes Psychiatric: Present: Alert, Oriented x 3, Normal Insight, Normal Concentration Medical Decision Making ED Course and Treatment: 09/02/16 05:25 Impression: A 26 year old female who presents to the emergency department complaining of sore throat, earache discomfort and burning sensation while urinating. Plan: -- Influenza -- Rapid Strep -- HCG -- Urinalysis -- Reassess and disposition Progress Notes: - Lab Interpretations Microbiology Results: Microbiology Results 09/02/16 06:00 Throat Group A Strep Throat Culture - Final NO BETA STREP GROUP A ISOLATED. 09/02/16 05:30 Urine,Clean Catch Urine Culture - Final Gram Positive Cocci Lab Results: Lab Results 09/02/16 05:30: Influenza Typ A,B (EIA) Negative for flu a/b, Grp A Beta Strep Ag Negative 09/02/16 05:10: Urine Color Yellow, Urine Appearance Sl cloudy, Urine pH 6.0, Ur Specific [place] >= 1.030, Urine Protein 30 H, Urine Glucose (UA) Negative, Urine Ketones Negative, Urine Blood Large H, Urine Nitrate Negative, Urine Bilirubin Negative, Urine Urobilinogen 0.2, Ur Leukocyte Esterase Trace H, Urine RBC 5 - 10, Urine WBC 1 - 3, Ur Epithelial Cells 1 - 3, Urine Bacteria Small, Urine HCG, Qual Negative - Scribe Statement The provider has reviewed the documentation as recorded by the Mayela Cruz Provider Attestation: All medical record entries made by the Scribe were at my direction and personally dictated by me. I have reviewed the chart and agree that the record accurately reflects my personal performance of the history, physical exam, medical decision making, and the department course for this patient. I have also personally directed, reviewed, and agree with the discharge instructions and disposition. Disposition/Present on Arrival - Present on Arrival Any Indicators Present on Arrival: No History of DVT/PE: No History of Uncontrolled Diabetes: No Urinary Catheter: No History of Decub. Ulcer: No History Surgical Site Infection Following: None - Disposition Have Diagnosis and Disposition been Completed?: Yes Diagnosis: Pharyngitis Disposition: HOME/ ROUTINE Disposition Time: 06:45 Patient Plan: Discharge Condition: GOOD Additional Instructions: Drink plenty of liquids/take meds as prescribed/follow up with your doctor this week Prescriptions: Azithromycin [Zithromax] 250 mg PO DAILY #6 tab
[2016-09-02 05:48] LABS: URINE COLOR YELLOW (YELLOW)
[2016-09-02 05:49] LABS: URINE APPEARANCE SL CLOUDY (CLEAR)
[2016-09-02 05:50] LABS: URINE BILIRUBIN NEGATIVE (NEGATIVE); URINE BLOOD LARGE (NEGATIVE); URINE GLUCOSE (UA) NEGATIVE (NEGATIVE); URINE KETONE NEGATIVE (NEGATIVE); URINE LEUKOCYTE ESTERASE TRACE Leu/uL (NEGATIVE); URINE PROTEIN 30 mg/dL (<30 mg/dL); URINE UROBILINOGEN 0.2 E.U./dL (<1 E.U./dL)
[2016-09-02 05:56] LABS: URINE BACTERIA SMALL (NEG)
[2016-09-02 07:03] VITALS: BP 126/84; PULSE 86; RESP 18; TEMP 97.8
== END 2016-09-02 07:04 | disposition home or self-care (01) ==
LOC: ED 04:17
DX: J02.9 Acute pharyngitis, unspecified (principal)

== ENCOUNTER 2016-12-24 01:46 | Emergency (ER) | payer BC ==
[2016-12-24 01:47] VITALS: BMI 18.3
[2016-12-24 02:08] VITALS: TEMP 98.2
[2016-12-24 02:42] LABS: BASO # 0.03 K/mm3 (0.0-2.0); BASO % 0.5 % (0.0-3.0); EOS # 0.1 (0.0-0.7); GRAN # 2.87 (1.4-6.5); GRAN % 46.6 % (50.0-68.0); HEMATOCRIT 36.7 % (36.0-48.0); LYMPH # 2.4 (1.2-3.4); LYMPH % 39.7 % (22.0-35.0); MEAN CELL VOLUME 80.5 fl (80.0-105.0); MEAN CORPUSCULAR HEMOGLOBIN 27.9 pg (25.0-35.0); MEAN CORPUSCULAR HGB CONC 34.6 g/dl (31.0-37.0); MEAN PLATELET VOLUME 12.5 fl (7.0-11.0); MONO # 0.7 (0.1-0.6); MONO % 11.2 % (1.0-6.0); RED CELL DISTRIBUTION WIDTH 13.5 % (11.5-14.5); WHITE BLOOD COUNT 6.2 10^3/ul (4.5-11.0)
--- NOTE | 2016-12-24 02:43 | ED PDOC ---
Arrival/HPI - General Chief Complaint: Abdominal Pain Time Seen by Provider: 12/24/16 01:48 Historian: Patient - History of Present Illness Narrative History of Present Illness (Text): 12/24/16 02:42 A 26 year old female, whose past medical history includes pyelonephritis, presents to the emergency department complaining of left flank pain and burning sensation while urinating for the past three days. Patient denies any fever, chills or any other complaints at this time. Time/Duration: Other (3 days) Symptom Onset: Sudden Symptom Course: Unchanged Activities at Onset: Rest Context: Home Past Medical History - Provider Review Nursing Documentation Reviewed: Yes - Infectious Disease Hx of Infectious Diseases: None - Tetanus Immunization Tetanus Immunization: Unknown - Cardiac Hx Cardiac Disorders: No - Pulmonary Hx Respiratory Disorders: No - Neurological Hx Neurological Disorder: No - HEENT Hx HEENT Disorder: No - Renal Hx Renal Disorder: Yes Other/Comment: BLOOD IN URINE, MSK (medullary sponge kidney) - Endocrine/Metabolic Hx Endocrine Disorders: Yes Other/Comment: Hypoglycemia - Hematological/Oncological Hx Blood Disorders: Yes Other/Comment: Factor XI, Factor XII - Integumentary Hx Dermatological Disorder: No - Musculoskeletal/Rheumatological Hx Musculoskeletal Disorders: No - Gastrointestinal Hx Gastrointestinal Disorders: No Hx Gastroesophageal Reflux: Yes Hx Irritable Bowel: Yes Other/Comment: esophagitis - Genitourinary/Gynecological Hx Genitourinary Disorders: No - Psychiatric Hx Psychophysiologic Disorder: Yes Hx Depression: Yes Hx Panic Disorder: Yes Hx Substance Use: No - Surgical History Hx Appendectomy: Yes Hx Dilation and Curettage: Yes (3) Other/Comment: CYSTOSCOPY, 2X - Anesthesia Hx Anesthesia: Yes Hx Anesthesia Reactions: No Hx Malignant Hyperthermia: No Family/Social History - Physician Review Nursing Documentation Reviewed: Yes Family/Social History: No Known Family HX Smoking Status: electronic Hx Alcohol Use: No Hx Substance Use: No Allergies/Home Meds Allergies/Adverse Reactions: Allergies amoxicillin Allergy (Verified 12/24/16 02:01) URTICARIA ciprofloxacin [From Cipro] Allergy (Verified 12/24/16 02:01) URTICARIA ciprofloxacin HCl [From Cipro] Allergy (Verified 12/24/16 02:01) URTICARIA doxycycline Allergy (Verified 12/24/16 02:01) URTICARIA Penicillins Allergy (Verified 12/24/16 02:01) URTICARIA phenytoin sodium [From Dilantin] Allergy (Verified 12/24/16 02:01) URTICARIA phenytoin sodium extended [From Dilantin] Allergy (Verified 12/24/16 02:01) URTICARIA sulfamethoxazole [From Bactrim] Allergy (Verified 12/24/16 02:01) URTICARIA trimethoprim [From Bactrim] Allergy (Verified 12/24/16 02:01) URTICARIA Home Medications: Home Meds Medication Instructions Recorded Confirmed QUEtiapine [Seroquel XR] 50 mg PO HS 05/06/16 12/24/16 clonazePAM [Klonopin] 0.5 mg PO PRN PRN 05/06/16 12/24/16 Review of Systems - Physician Review All systems were reviewed & negative as marked: Yes - Review of Systems Constitutional: absent: Fevers, Other (chills) Gastrointestinal: Abdominal Pain (left flank pain), Other (burning sensation while urinating) Physical Exam Vital Signs Reviewed: Yes Vital Signs Temp Pulse Resp BP Pulse Ox 12/24/16 02:02 98.2 F 95 H 18 118/75 100 Temperature: Afebrile Blood Pressure: Normal Pulse: Regular Respiratory Rate: Normal Appearance: Positive for: Well-Appearing, Non-Toxic, Comfortable Pain Distress: None Mental Status: Positive for: Alert and Oriented X 3 - Systems Exam Head: Present: Atraumatic, Normocephalic Pupils: Present: PERRL Extroacular Muscles: Present: EOMI Conjunctiva: Present: Normal Mouth: Present: Moist Mucous Membranes Neck: Present: Normal Range of Motion Respiratory/Chest: Present: Clear to Auscultation, Good Air Exchange. No: Respiratory Distress, Accessory Muscle Use Cardiovascular: Present: Regular Rate and Rhythm, Normal S1, S2. No: Murmurs Abdomen: Present: Normal Bowel Sounds. No: Tenderness, Distention, Peritoneal Signs Back: Present: Normal Inspection Upper Extremity: Present: Normal Inspection. No: Cyanosis, Edema Lower Extremity: Present: Normal Inspection. No: Edema Neurological: Present: GCS=15, CN II-XII Intact, Speech Normal Skin: Present: Warm, Dry, Normal Color. No: Rashes Psychiatric: Present: Alert, Oriented x 3, Normal Insight, Normal Concentration Medical Decision Making ED Course and Treatment: 12/24/16 02:40 Impression: A 26 year old female with left flank pain and burning sensation while urinating. Plan: -- CT abd/pelvis -- labs -- Urinalysis -- Reassess and disposition Prior Visits: Notes and results from previous visits were reviewed. Patient was last seen in the emergency department on 09/02/16 for evaluation of sore throat, earache discomfort and burning sensation while urinating. Progress Notes: CT Abdomen and Pelvis Without Intravenous Contrast FINDINGS: Lower thorax: 0.3 cm subpleural nodule vs focal scarring LEFT lower lobe, stable. ABDOMEN: Liver: Unremarkable. Gallbladder and bile ducts: No calcified stones. No ductal dilation. Pancreas: Unremarkable. No ductal dilation. Spleen: No splenomegaly. Adrenals: No mass. Kidneys and ureters: Increased density of medullary pyramids. Few faint punctate calculi within kidneys. No hydronephrosis. Stomach and bowel: No definite mural thickening. No obstruction. Appendix: Appendectomy. PELVIS: Bladder: Unremarkable. No stones. Reproductive: Mild asymmetric enlargement of LEFT ovary with possible cyst. ABDOMEN and PELVIS: Intraperitoneal space: No significant fluid collection. No free air. Bones/joints: No acute fracture. Soft tissues: Unremarkable. Vasculature: Unremarkable. No aneurysm. Lymph nodes: No pathologically enlarged lymph nodes. IMPRESSION: 1. Nonobstructing renal calculi. 2. Mild asymmetric enlargement of LEFT ovary with possible cyst. Suggest ultrasound. 3. Incidental/non-acute findings are described above. Dictated and Authenticated by: Gunnar Hernandez MD 12/24/2016 2:56 AM Eastern Time ([place] & [place]) 12/24/16 03:05 On re-evaluation, patient feels better and is in no acute distress. I have discussed the results and plan with the patient, who expresses understanding. Patient in agreement with plan to be discharged home. Patient is stable for discharge. Patient was instructed to follow up with physician or return if symptoms worsen or new concerning symptoms arise. - Lab Interpretations Lab Results: 12/24/16 02:10 12/24/16 02:10 Lab Results 12/24/16 02:10: Sodium 139, Potassium 4.0, Chloride 103, Carbon Dioxide 25, Anion Gap 15, BUN 16, Creatinine 0.9, Est GFR ( Amer) > 60, Est GFR (Non- Af Amer) > 60, Random Glucose 78, Calcium 9.2, Total Bilirubin 0.4, AST 28, ALT 23, Alkaline Phosphatase 67, Total Protein 7.3, Albumin 4.4, Globulin 2.8, Albumin/Globulin Ratio 1.6 12/24/16 02:10: WBC 6.2, RBC 4.56, Hgb 12.7, Hct 36.7, MCV 80.5, MCH 27.9, MCHC 34.6, RDW 13.5, Plt Count 247, MPV 12.5 H, Gran % 46.6 L, Lymph % (Auto) 39.7 H , Smith % (Auto) 11.2 H, Eos % (Auto) 2.0, Baso % (Auto) 0.5, Gran # 2.87, Lymph # 2.4, Smith # 0.7 H, Eos # 0.1, Baso # 0.03 12/24/16 02:04: Urine Color Yellow, Urine Appearance Clear, Urine pH 7.5, Ur Specific [place] 1.020, Urine Protein Negative, Urine Glucose (UA) Negative, Urine Ketones Negative, Urine Blood Negative, Urine Nitrate Negative, Urine Bilirubin Negative, Urine Urobilinogen 0.2, Ur Leukocyte Esterase Negative, Urine HCG, Qual Negative I have reviewed the lab results: Yes - RAD Interpretation Radiology Orders: 12/24/16 02:18 ABD & PELVIS W/O PO OR IV CONT [CT] Stat - Scribe Statement The provider has reviewed the documentation as recorded by the Mayela Pineda Provider Scribe Attestation: All medical record entries made by the Scribe were at my direction and personally dictated by me. I have reviewed the chart and agree that the record accurately reflects my personal performance of the history, physical exam, medical decision making, and the department course for this patient. I have also personally directed, reviewed, and agree with the discharge instructions and disposition. Disposition/Present on Arrival - Present on Arrival Any Indicators Present on Arrival: No History of DVT/PE: No History of Uncontrolled Diabetes: No Urinary Catheter: No History of Decub. Ulcer: No History Surgical Site Infection Following: None - Disposition Have Diagnosis and Disposition been Completed?: Yes Diagnosis: Left flank pain Disposition: HOME/ ROUTINE Disposition Time: 03:12 Condition: GOOD Discharge Instructions (ExitCare): Flank Pain (ED) Prescriptions: Tramadol HCl [Ultram] 50 mg PO QID #8 tab Forms: [employer] (Filipino)
[2016-12-24 02:47] LABS: ALB/GLOB RATIO 1.6 (1.1-1.8); ALKALINE PHOSPHATASE 67 U/L (38-133); ALT/SGPT 23 U/L (7-56); AST/SGOT 28 U/L (15-39); BILIRUBIN,TOTAL 0.4 mg/dL (0.2-1.3); BLOOD UREA NITROGEN 16 mg/dL (7-21); CALCIUM 9.2 mg/dL (8.4-10.5); CARBON DIOXIDE 25 mmol/L (21-33); CHLORIDE 103 mmol/L (98-107); GFR AFRICAN-AMERICAN > 60; GLUCOSE,RANDOM 78 mg/dL (70-110); SODIUM 139 mmol/L (132-148); TOTAL PROTEIN 7.3 g/dL (5.8-8.3)
[2016-12-24 02:49] LABS: PH,URINE 7.5 (4.7-8.0); URINE BILIRUBIN NEGATIVE (NEGATIVE); URINE BLOOD NEGATIVE (NEGATIVE); URINE GLUCOSE (UA) NEGATIVE (NEGATIVE); URINE KETONE NEGATIVE (NEGATIVE); URINE LEUKOCYTE ESTERASE NEGATIVE Leu/uL (NEGATIVE); URINE PROTEIN NEGATIVE mg/dL (<30 mg/dL); URINE UROBILINOGEN 0.2 E.U./dL (<1 E.U./dL)
[2016-12-24 02:55] LABS: URINE APPEARANCE CLEAR (CLEAR); URINE COLOR YELLOW (YELLOW)
--- NOTE | 2016-12-24 02:56 | CT ---
EXAM: CT Abdomen and Pelvis Without Intravenous Contrast CLINICAL HISTORY: 26 years old, female; Pain; Abdominal pain; Flank; Left; Prior surgery; Surgery date: 6+ months; Surgery type: Appendectomy; Additional info: Left flank pain TECHNIQUE: Axial computed tomography images of the abdomen and pelvis without intravenous contrast. All CT scans at this facility use one or more dose reduction techniques, viz.: automated exposure control; ma/kV adjustment per patient size (including targeted exams where dose is matched to indication; i.e. head); or iterative reconstruction technique. Coronal and sagittal reformatted images were created and reviewed. COMPARISON: CT - ABD PELVIS PO IV CONTRAST 05/06/2016 8:25:55 PM FINDINGS: Lower thorax: 0.3 cm subpleural nodule vs focal scarring LEFT lower lobe, stable. ABDOMEN: Liver: Unremarkable. Gallbladder and bile ducts: No calcified stones. No ductal dilation. Pancreas: Unremarkable. No ductal dilation. Spleen: No splenomegaly. Adrenals: No mass. Kidneys and ureters: Increased density of medullary pyramids. Few faint punctate calculi within kidneys. No hydronephrosis. Stomach and bowel: No definite mural thickening. No obstruction. Appendix: Appendectomy. PELVIS: Bladder: Unremarkable. No stones. Reproductive: Mild asymmetric enlargement of LEFT ovary with possible cyst. ABDOMEN and PELVIS: Intraperitoneal space: No significant fluid collection. No free air. Bones/joints: No acute fracture. Soft tissues: Unremarkable. Vasculature: Unremarkable. No aneurysm. Lymph nodes: No pathologically enlarged lymph nodes. IMPRESSION: 1. Nonobstructing renal calculi. 2. Mild asymmetric enlargement of LEFT ovary with possible cyst. Suggest ultrasound. 3. Incidental/non-acute findings are described above.
[2016-12-24 03:54] VITALS: BP 120/86; PULSE 86; RESP 16; O2SAT 99
== END 2016-12-24 03:20 | disposition home or self-care (01) ==
LOC: ED 01:46
DX: R10.9 Unspecified abdominal pain (principal); K21.9 Gastro-esophageal reflux disease without esophagitis

== ENCOUNTER 2017-02-10 01:25 | Emergency (ER) | payer BC ==
[2017-02-10 01:31] VITALS: BMI 18.1
[2017-02-10 01:35] VITALS: BP 127/87; PULSE 79; RESP 18; TEMP 97.8; O2SAT 100
--- NOTE | 2017-02-10 02:14 | ED PDOC ---
Arrival/HPI - General Historian: Patient - History of Present Illness Time/Duration: 4-6 hours Symptom Onset: Sudden Symptom Course: Improving Activities at Onset: Rest, Light Context: Home <ERIC NGUYỄN - Last Filed: 02/10/17 02:03> <Glenn Morfin - Last Filed: 02/11/17 22:54> - General Chief Complaint: Medical Clearance Time Seen by Provider: 02/10/17 01:39 - History of Present Illness Narrative History of Present Illness (Text): 02/10/17 02:04 Ms. Justin is a 26 year old female with a past medical history significant for anxiety, esophagitis, medullary sponge kidney disease, and factor XI and XII deficiency who presents to the [facility] emergency department with a chief complaint of hypoglycemia measured at 53 at home. Patient states that several hours PER DIEM PHYSICAL THERAPIST she took her fingerstick glucose after she began to feel light headed, dizzy, and had a fast heart rate. She reports that she has eaten several meals and even ate a meal consisting of pizza and chips two hours prior to her fingerstick reading. She states that this happens often and that she is currently seeing an correctional facility psychiatrist for this. These episodes are usually self limited or resolve after patient eats foods high in sugar. The current episode has lasted longer than usual and patient was concerned enough to be seen in the emergency department, although she states that she is starting to feel "better" . She denies fever, chills, weight loss, headache, changes in her vision, chest pain, palpitations, shortness of breath, cough, wheezing, abdominal pain, N/V, diarrhea, constipation, burning with urination, polyuria, polydipsia or rash. (ERIC NGUYỄN) Past Medical History - Provider Review Nursing Documentation Reviewed: Yes - Travel History Have you recently traveled outside [place] w/in the past 3 mons?: No - Past History Past History: No Previous - Infectious Disease Hx of Infectious Diseases: None - Tetanus Immunization Tetanus Immunization: Unknown - Cardiac Hx Cardiac Disorders: No - Pulmonary Hx Respiratory Disorders: No - Neurological Hx Neurological Disorder: No - HEENT Hx HEENT Disorder: No - Renal Hx Renal Disorder: Yes Other/Comment: BLOOD IN URINE, MSK (medullary sponge kidney) - Endocrine/Metabolic Hx Endocrine Disorders: Yes Other/Comment: Hypoglycemia - Hematological/Oncological Hx Blood Disorders: Yes Other/Comment: Factor XI, Factor XII - Integumentary Hx Dermatological Disorder: No - Musculoskeletal/Rheumatological Hx Musculoskeletal Disorders: No - Gastrointestinal Hx Gastrointestinal Disorders: No Hx Gastroesophageal Reflux: Yes Hx Irritable Bowel: Yes Other/Comment: esophagitis - Genitourinary/Gynecological Hx Genitourinary Disorders: No - Psychiatric Hx Psychophysiologic Disorder: Yes Hx Anxiety: Yes Hx Panic Disorder: Yes Hx Substance Use: No - Surgical History Hx Appendectomy: Yes Hx Dilation and Curettage: Yes (3) Other/Comment: CYSTOSCOPY, 2X - Anesthesia Hx Anesthesia: Yes Hx Anesthesia Reactions: No Hx Malignant Hyperthermia: No <ERIC NGUYỄN - Last Filed: 02/10/17 02:03> Family/Social History - Physician Review Nursing Documentation Reviewed: Yes Family/Social History: Unknown Family HX Smoking Status: electronic Hx Alcohol Use: No Hx Substance Use: No <ERIC NGUYỄN - Last Filed: 02/10/17 02:03> Allergies/Home Meds <ERIC NGUYỄN - Last Filed: 02/10/17 02:03> <Glenn Morfin - Last Filed: 02/11/17 22:54> Allergies/Adverse Reactions: Allergies amoxicillin Allergy (Verified 02/10/17 01:36) URTICARIA ciprofloxacin [From Cipro] Allergy (Verified 02/10/17 01:36) URTICARIA ciprofloxacin HCl [From Cipro] Allergy (Verified 02/10/17 01:36) URTICARIA doxycycline Allergy (Verified 02/10/17 01:36) URTICARIA Penicillins Allergy (Verified 02/10/17 01:36) URTICARIA phenytoin sodium [From Dilantin] Allergy (Verified 02/10/17 01:36) URTICARIA phenytoin sodium extended [From Dilantin] Allergy (Verified 02/10/17 01:36) URTICARIA sulfamethoxazole [From Bactrim] Allergy (Verified 02/10/17 01:36) URTICARIA trimethoprim [From Bactrim] Allergy (Verified 02/10/17 01:36) URTICARIA Home Medications: Home Meds Medication Instructions Recorded Confirmed QUEtiapine [Seroquel XR] 50 mg PO HS 05/06/16 02/10/17 Ondansetron ODT [Zofran ODT] 4 mg PO BID 02/10/17 02/10/17 Review of Systems - Physician Review All systems were reviewed & negative as marked: Yes - Review of Systems Constitutional: Normal. absent: Weight Change, Fevers, Night Sweats Eyes: Normal. absent: Vision Changes ENT: Normal Respiratory: Normal. absent: SOB, Cough Cardiovascular: Normal. absent: Chest Pain, Palpitations Gastrointestinal: Normal. absent: Abdominal Pain, Constipation, Diarrhea, Nausea, Vomiting Genitourinary Female: Normal. absent: Dysuria Musculoskeletal: Normal Skin: Normal. absent: Rash Neurological: Dizziness. absent: Normal, Headache Endocrine: Normal. absent: Polyuria, Polydipsia Hemo/Lymphatic: Normal Psychiatric: Anxiety. absent: Normal <ERIC NGUYỄN - Last Filed: 02/10/17 02:03> Physical Exam Vital Signs Reviewed: Yes Temperature: Afebrile Blood Pressure: Normal Pulse: Regular Respiratory Rate: Normal Appearance: Positive for: Well-Appearing, Non-Toxic, Comfortable Pain Distress: None Mental Status: Positive for: Alert and Oriented X 3 Finger Stick Blood Glucose: 76 - Systems Exam Head: Present: Atraumatic, Normocephalic Pupils: Present: PERRL Extroacular Muscles: Present: EOMI Conjunctiva: Present: Normal Mouth: Present: Moist Mucous Membranes Neck: Present: Normal Range of Motion Respiratory/Chest: Present: Clear to Auscultation, Good Air Exchange. No: Respiratory Distress, Accessory Muscle Use Cardiovascular: Present: Regular Rate and Rhythm, Normal S1, S2. No: Murmurs Abdomen: Present: Normal Bowel Sounds. No: Tenderness, Distention, Peritoneal Signs Back: Present: Normal Inspection. No: CVA Tenderness, Midline Tenderness, Paraspinal Tenderness Upper Extremity: Present: Normal Inspection. No: Cyanosis, Edema Lower Extremity: Present: Normal Inspection. No: Edema Neurological: Present: GCS=15, CN II-XII Intact, Speech Normal Skin: Present: Warm, Dry, Normal Color. No: Rashes Psychiatric: Present: Alert, Oriented x 3, Normal Insight, Normal Concentration <ERIC NGUYỄN - Last Filed: 02/10/17 02:03> Vital Signs Temp Pulse Resp BP Pulse Ox 02/10/17 01:31 97.8 F 79 18 127/87 100 Medical Decision Making - Lab Interpretations I have reviewed the lab results: Yes <ERIC NGUYỄN - Last Filed: 02/10/17 02:03> <Glenn Morfin - Last Filed: 02/11/17 22:54> ED Course and Treatment: 02/10/17 02:18 Impression: 26 year old female with a past medical history significant for anxiety, esophagitis, medullary sponge kidney disease, and factor XI and XII deficiency who presents to the [facility] emergency department with a chief complaint of hypoglycemia measured at 53 at home. Plan: -F/U with correctional facility psychiatrist Prior Visits: All results and reports from previous visits reviewed. Patient was seen and evaluated for dysuria in 12/11 (ERIC NGUYỄN) pt seen and examined with resident agree with plan and management 02/11/17 22:54 (Glenn Morfin) - Lab Interpretations Lab Results: Lab Results 02/10/17 01:30: POC Glucose (mg/dL) 76 - PA / DIRECTOR OF CLINICAL APPLICATIONS / Resident Statement / has reviewed & agrees with the documentation as recorded. / has examined the patient and agrees with the treatment plan. <Glenn Morfin - Last Filed: 02/11/17 22:54> Disposition/Present on Arrival - Present on Arrival Any Indicators Present on Arrival: No History of DVT/PE: No History of Uncontrolled Diabetes: No Urinary Catheter: No History of Decub. Ulcer: No History Surgical Site Infection Following: None - Disposition Have Diagnosis and Disposition been Completed?: Yes Disposition Time: 02:20 <ERIC NGUYỄN - Last Filed: 02/10/17 02:03> - Present on Arrival Any Indicators Present on Arrival: No - Disposition Have Diagnosis and Disposition been Completed?: Yes <Glenn Morfin - Last Filed: 02/11/17 22:54> - Disposition Diagnosis: Hypoglycemia Disposition: HOME/ ROUTINE Condition: GOOD Discharge Instructions (ExitCare): Non-diabetic Hypoglycemia (ED) Additional Instructions: Ms. Justin, thank you for letting us take care of you today. Your provider was Dr. Morfin. You were treated for hypoglycemia. The emergency medical care you received today was directed at your acute symptoms. If you were prescribed any medication, please fill it and take as directed. It may take several days for your symptoms to resolve. Return to the Emergency Department if your symptoms worsen, do not improve, or if you have any other problems. Please contact your doctor or call one of the physicians/clinics you have been referred to that are listed on the Patient Visit Information form that is included in your discharge packet. Bring any paperwork you were given at discharge with you along with any medications you are taking to your follow up visit. Our treatment cannot replace ongoing medical care by a primary care provider (PCP) outside of the emergency department. PLEASE FOLLOW UP WITH YOUR PRIMARY CARE DOCTOR AND FLOTATION TANK OPERATOR WITHIN ONE WEEK Thank you for allowing the [facility] team to be part of your care today. Forms: [employer] (Icelandic)
== END 2017-02-10 02:34 | disposition home or self-care (01) ==
LOC: ED 01:25
DX: E16.2 Hypoglycemia, unspecified (principal); Q61.5 Medullary cystic kidney; Z88.0 Allergy status to penicillin

== ENCOUNTER 2017-03-19 | Emergency (ER) | payer BC ==
[2017-03-19 00:01] VITALS: BMI 18.1
--- NOTE | 2017-03-19 00:17 | ED PDOC ---
Arrival/HPI - History of Present Illness Time/Duration: < week (2 days) Quality: Cramping Severity Level: 6 - History of Present Illness Narrative History of Present Illness (Text): Ms. Justin is a 26 year old female with a past medical history significant for anxiety, esophagitis, medullary sponge kidney disease, factor XI and XII deficiency, and 2 first trimester spontaneous who presents to the [facility] emergency department complaining of non-radiating lower abdominal cramping which she rates 6/10 x 2 days. Patient stated "I feel like my ovaries are being squeezed". Patient cannot remember any triggering factors. She has not tried anything to relieve the pain due to her many allergies and status. ROS POSITIVE: Lightheadedness, nausea, abdominal pain, mild dysuria NEGATIVE: Recent changes in diet, trauma, fever, chills, chest pain, sob, vomiting, vaginal bleeding, back pain, diarrhea, constipation. PMHx: anxiety, esophagitis, medullary sponge kidney disease, factor XI and XII deficiency, and 2 first trimester spontaneous with D&C, Chronic Nausea , GERD PSHx: D&C, appendectomy (2013) Allergies: Cod Fish, Penicillins, Amoxicillin, Doxycyclin, Ciprofloxacin, Bactrim, Dilantin, Tylenol. States throat closes up and Hives as reaction. Social Hx: Smokes electronic cigarettes for 1 year. Denies alcohol and illicit drug use. Family Hx: Unknown. Adopted Meds: Seroquel ER 50 Daily, Clonazepam 0.5mg PRN, Zofran 4mg 3-4x a day ( Patient stated that her MANAGER STAR stated Zofran was okay to take) FDLMP: February 20 2017. (Inconsistent with patients history of being 4.5 weeks ) PMD: Dr. Shyla Escobar MANAGER STAR: Dr. Ho 03/19/17 00:58 (Kei Hoskins) Modifying Factors (Text): None 03/19/17 00:59 (Kei Hoskins) Past Medical History - Provider Review Nursing Documentation Reviewed: Yes - Past History Past History: No Previous - Infectious Disease Hx of Infectious Diseases: None - Tetanus Immunization Tetanus Immunization: Unknown - Cardiac Hx Cardiac Disorders: No - Pulmonary Hx Respiratory Disorders: No - Neurological Hx Neurological Disorder: No - HEENT Hx HEENT Disorder: No - Renal Hx Renal Disorder: Yes Other/Comment: BLOOD IN URINE, MSK (medullary sponge kidney) - Endocrine/Metabolic Hx Endocrine Disorders: Yes Other/Comment: Hypoglycemia - Hematological/Oncological Hx Blood Disorders: Yes Other/Comment: Factor XI, Factor XII - Integumentary Hx Dermatological Disorder: No - Musculoskeletal/Rheumatological Hx Musculoskeletal Disorders: No - Gastrointestinal Hx Gastrointestinal Disorders: No Hx Gastroesophageal Reflux: Yes Hx Irritable Bowel: Yes Other/Comment: esophagitis - Genitourinary/Gynecological Hx Genitourinary Disorders: No - Psychiatric Hx Psychophysiologic Disorder: Yes Hx Anxiety: Yes Hx Panic Disorder: Yes Hx Substance Use: No - Surgical History Hx Appendectomy: Yes Hx Dilation and Curettage: Yes (3) Other/Comment: CYSTOSCOPY, 2X - Anesthesia Hx Anesthesia: Yes Hx Anesthesia Reactions: No Hx Malignant Hyperthermia: No Family/Social History - Physician Review Nursing Documentation Reviewed: Yes Family/Social History: Unknown Family HX (Adopted) Smoking Status: electronic Hx Alcohol Use: No Hx Substance Use: No Allergies/Home Meds Allergies/Adverse Reactions: Allergies acetaminophen Allergy (Verified 03/19/17 00:18) ANAPHYLAXIS amoxicillin Allergy (Verified 03/19/17 00:18) URTICARIA ciprofloxacin [From Cipro] Allergy (Verified 03/19/17 00:18) URTICARIA ciprofloxacin HCl [From Cipro] Allergy (Verified 03/19/17 00:18) URTICARIA doxycycline Allergy (Verified 03/19/17 00:18) URTICARIA Penicillins Allergy (Verified 03/19/17 00:18) URTICARIA phenytoin sodium [From Dilantin] Allergy (Verified 03/19/17 00:18) URTICARIA phenytoin sodium extended [From Dilantin] Allergy (Verified 03/19/17 00:18) URTICARIA sulfamethoxazole [From Bactrim] Allergy (Verified 03/19/17 00:18) URTICARIA trimethoprim [From Bactrim] Allergy (Verified 03/19/17 00:18) URTICARIA Home Medications: Home Meds Medication Instructions Recorded Confirmed QUEtiapine [Seroquel XR] 50 mg PO HS 05/06/16 03/19/17 Ondansetron ODT [Zofran ODT] 4 mg PO BID 02/10/17 03/19/17 Clonazepam [Klonopin] 0.5 mg PO PRN PRN 03/19/17 03/19/17 Review of Systems - Physician Review All systems were reviewed & negative as marked: Yes - Review of Systems Constitutional: Normal Respiratory: Normal (ROS As per HPI) Physical Exam Vital Signs Reviewed: Yes Temperature: Afebrile Blood Pressure: Normal Pulse: Regular Respiratory Rate: Normal Appearance: Positive for: Well-Appearing Pain Distress: Mild Mental Status: Positive for: Alert and Oriented X 3 - Systems Exam Head: Present: Atraumatic, Normocephalic Pupils: Present: PERRL Extroacular Muscles: Present: EOMI Conjunctiva: Present: Normal Mouth: Present: Moist Mucous Membranes Respiratory/Chest: Present: Clear to Auscultation. No: Respiratory Distress, Wheezes, Decreased Breath Sounds, Rhonchi Cardiovascular: Present: Regular Rate and Rhythm, Normal S1, S2. No: Murmurs Abdomen: Present: Tenderness (Suprapubic, LLQ), Normal Bowel Sounds. No: Distention, Rebound, Guarding, Mass/Organomegaly Back: No: CVA Tenderness Upper Extremity: Present: Normal Inspection Neurological: Present: GCS=15, Speech Normal Skin: Present: Warm, Dry, Normal Color. No: Rashes Psychiatric: Present: Alert, Oriented x 3, Normal Affect, Normal Mood Vital Signs Temp Pulse Resp BP Pulse Ox 03/19/17 00:19 98.0 F 89 16 121/74 98 Medical Decision Making Reassessment Condition: Re-examined, Unchanged ED Course and Treatment: Impression: Pt seen and evaluated with medical office coordinator. Pt, whose past medical history includes anxiety, esophagitis, factor XI/XII deficiency, and spontaneous , presented for lower abdominal cramping. Aware and agree with HPI, clinical findings, plan, and management. Plan: -- Labs, Beta-HCG -- Urinalysis -- Transvaginal US -- Reassess and disposition (Glenn Morfin) 26 year old Female presents with Lower Abdominal Cramping --CBC/CMP --UA w/ Urine Beta HCG --Quantitative Beta HCG --Transvaginal US --Reassess and Disposition Reassessment -Urine Beta HCG NEGATIVE x 2 -Quantitative Beta HC.06 - Patient should follow up with MANAGER STAR for repeat Beta HCG in 1 week -TV Ultrasound: No Intrauterine Gestation 03/19/17 03:05 (Kei Hoskins) - Lab Interpretations Lab Results: 03/19/17 00:56 03/19/17 01:55 Lab Results 03/19/17 01:55: Sodium 139, Potassium 3.7, Chloride 104, Carbon Dioxide 28, Anion Gap 11, BUN 14, Creatinine 0.9, Est GFR ( Amer) > 60, Est GFR (Non- Af Amer) > 60, Random Glucose 110, Calcium 9.3, Total Bilirubin 0.4, AST 22, ALT 26, Alkaline Phosphatase 59, Total Protein 6.7, Albumin 3.9, Globulin 2.7, Albumin/Globulin Ratio 1.5 03/19/17 00:56: Beta HCG, Quant 5.06 03/19/17 00:56: WBC 5.6, RBC 4.44, Hgb 12.4, Hct 36.6, MCV 82.4, MCH 27.9, MCHC 33.9, RDW 13.3, Plt Count 232, MPV 11.8 H, Gran % 43.7 L, Lymph % (Auto) 40.8 H , [place] % (Auto) 11.4 H, Eos % (Auto) 3.4, Baso % (Auto) 0.7, Gran # 2.44, Lymph # 2.3, [place] # 0.6, Eos # 0.2, Baso # 0.04 03/19/17 00:18: Urine Color Yellow, Urine Appearance Clear, Urine pH 6.0, Ur Specific [place] 1.025, Urine Protein Negative, Urine Glucose (UA) Negative, Urine Ketones Trace H, Urine Blood Negative, Urine Nitrate Negative, Urine Bilirubin Negative, Urine Urobilinogen 0.2, Ur Leukocyte Esterase Negative, Urine HCG, Qual Negative - RAD Interpretation Radiology Orders: 03/19/17 00:41 OB TRANSVAGINAL [US] Stat Disposition/Present on Arrival - Present on Arrival Any Indicators Present on Arrival: No History of DVT/PE: No History of Uncontrolled Diabetes: No Urinary Catheter: No History Surgical Site Infection Following: None - Disposition Have Diagnosis and Disposition been Completed?: Yes Disposition Time: 03:01 - Disposition Diagnosis: Missed Disposition: HOME/ ROUTINE Patient Problems: Current Active Problems Problem Status Onset Missed Acute Condition: STABLE Discharge Instructions (ExitCare): Spontaneous Miscarriage (ED) Additional Instructions: Please follow up with your primary medical physician Please follow up with MANAGER STAR for repeat Beta-HCG test in one week. Referrals: Shyla Escobar MD [Primary Care Provider] - Follow up with primary
[2017-03-19 00:20] VITALS: RESP 16; TEMP 98
[2017-03-19 01:01] LABS: BASO # 0.04 K/mm3 (0.0-2.0); BASO % 0.7 % (0.0-3.0); EOS # 0.2 (0.0-0.7); EOS % 3.4 % (1.5-5.0); GRAN # 2.44 (1.4-6.5); GRAN % 43.7 % (50.0-68.0); HEMATOCRIT 36.6 % (36.0-48.0); LYMPH # 2.3 (1.2-3.4); LYMPH % 40.8 % (22.0-35.0); MEAN CELL VOLUME 82.4 fl (80.0-105.0); MEAN CORPUSCULAR HEMOGLOBIN 27.9 pg (25.0-35.0); MEAN CORPUSCULAR HGB CONC 33.9 g/dl (31.0-37.0); MEAN PLATELET VOLUME 11.8 fl (7.0-11.0); MONO # 0.6 (0.1-0.6); MONO % 11.4 % (1.0-6.0); RED CELL DISTRIBUTION WIDTH 13.3 % (11.5-14.5); WHITE BLOOD COUNT 5.6 10^3/ul (4.5-11.0)
[2017-03-19 01:25] LABS: URINE BILIRUBIN NEGATIVE (NEGATIVE); URINE BLOOD NEGATIVE (NEGATIVE); URINE GLUCOSE (UA) NEGATIVE (NEGATIVE); URINE KETONE TRACE mg/dL (NEGATIVE); URINE LEUKOCYTE ESTERASE NEGATIVE Leu/uL (NEGATIVE); URINE PROTEIN NEGATIVE mg/dL (<30 mg/dL); URINE UROBILINOGEN 0.2 E.U./dL (<1 E.U./dL)
[2017-03-19 01:28] LABS: URINE APPEARANCE CLEAR (CLEAR); URINE COLOR YELLOW (YELLOW)
[2017-03-19 02:27] LABS: ALB/GLOB RATIO 1.5 (1.1-1.8); ALKALINE PHOSPHATASE 59 U/L (38-126); ALT/SGPT 26 U/L (7-56); AST/SGOT 22 U/L (14-36); BILIRUBIN,TOTAL 0.4 mg/dL (0.2-1.3); BLOOD UREA NITROGEN 14 mg/dL (7-21); CALCIUM 9.3 mg/dL (8.4-10.5); CARBON DIOXIDE 28 mmol/L (21-33); CHLORIDE 104 mmol/L (98-107); GFR AFRICAN-AMERICAN > 60; GLUCOSE,RANDOM 110 mg/dL (70-110); POTASSIUM 3.7 mmol/L (3.6-5.0); SODIUM 139 mmol/L (132-148); TOTAL PROTEIN 6.7 g/dL (5.8-8.3)
--- NOTE | 2017-03-19 02:45 | US ---
EXAM: US , Transvaginal CLINICAL HISTORY: 26 years old, female; Pain; Other: Cramping/nausea; Gestational age or lmp: 02/18/17; ; [facility]; Additional info: Assess status TECHNIQUE: Real-time transvaginal obstetrical ultrasound of the maternal pelvis and a first trimester with image documentation. Transvaginal imaging was used for better evaluation of the fetus and adnexa. COMPARISON: No relevant prior studies available. FINDINGS: Gestation: No intrauterine gestational sac. Uterus/cervix: Endometrium: 0.5 cm in thickness. Closed cervix. Ovaries: Normal ovaries. No adnexal masses. Free fluid: No significant free fluid. IMPRESSION: 1. No intrauterine gestation. DDX: Early IUP, missed , ectopic .
[2017-03-19 03:15] VITALS: BP 115/65; PULSE 66; O2SAT 100
== END 2017-03-19 03:15 | disposition home or self-care (01) ==
LOC: ED
DX: O02.1 Missed abortion (principal); Z88.0 Allergy status to penicillin

== ENCOUNTER 2017-05-22 02:12 | Emergency (ER) | payer BC ==
[2017-05-22 02:23] VITALS: BMI 18.6
[2017-05-22 02:37] VITALS: RESP 18; TEMP 97.4; O2SAT 100
[2017-05-22] MEDS ORDERED: Sodium Chloride 0.9% 1,000 ML IV STA (03:07)
[2017-05-22 03:16] LABS: PH,URINE 7.5 (4.7-8.0); URINE BILIRUBIN NEGATIVE (NEGATIVE); URINE BLOOD NEGATIVE (NEGATIVE); URINE GLUCOSE (UA) NEGATIVE (NEGATIVE); URINE LEUKOCYTE ESTERASE NEGATIVE Leu/uL (NEGATIVE); URINE NITRATE NEGATIVE (NEGATIVE); URINE PROTEIN NEGATIVE mg/dL (<30 mg/dL); URINE UROBILINOGEN 0.2 E.U./dL (<1 E.U./dL)
[2017-05-22 03:17] LABS: URINE APPEARANCE CLEAR (CLEAR); URINE COLOR YELLOW (YELLOW)
[2017-05-22] MEDS ORDERED: Iohexol 240 (50 ml) ONE (03:19)
[2017-05-22 03:40] LABS: BASO # 0.05 K/mm3 (0.0-2.0); EOS # 0.1 (0.0-0.7); GRAN # 2.06 (1.4-6.5); HEMOGLOBIN 11.5 g/dL (12.0-16.0); LYMPH % 40.4 % (22.0-35.0); MEAN CELL VOLUME 84.1 fl (80.0-105.0); MEAN CORPUSCULAR HEMOGLOBIN 27.3 pg (25.0-35.0); MEAN CORPUSCULAR HGB CONC 32.5 g/dl (31.0-37.0); MEAN PLATELET VOLUME 12.2 fl (7.0-11.0); MONO # 0.7 (0.1-0.6); MONO % 14.6 % (1.0-6.0); RBC 4.21 10^6/uL (3.5-6.1); RED CELL DISTRIBUTION WIDTH 13.4 % (11.5-14.5); WHITE BLOOD COUNT 4.9 10^3/ul (4.5-11.0)
[2017-05-22 03:52] LABS: ALB/GLOB RATIO 1.5 (1.1-1.8); ALBUMIN 3.9 g/dL (3.0-4.8); ALT/SGPT 15 U/L (7-56); AMYLASE 126 U/L (35-125); AST/SGOT 20 U/L (14-36); BLOOD UREA NITROGEN 14 mg/dL (7-21); CALCIUM 9.2 mg/dL (8.4-10.5); GFR AFRICAN-AMERICAN > 60; GFR NON-AFRICAN AMERICAN > 60; LIPASE 189 U/L (23-300)
--- NOTE | 2017-05-22 03:59 | ED PDOC ---
Arrival/HPI - General Chief Complaint: Abdominal Pain Time Seen by Provider: 05/22/17 03:00 Historian: Patient - History of Present Illness Narrative History of Present Illness (Text): 05/22/17 03:01 27 year old female, with past medical history of anxiety, esophagitis, medullary sponge kidney disease, factor XI and XII deficiency, and 2 first trimester spontaneous , presents to the Emergency department complaining of upper abdominal discomfort for past 2 days. Patient informs worsening sharp pain bringing her to the Emergency department. Patient states pain in unaffected with food intake but increases with movement of torso to the left side. Patient denies any fever, chills, nausea, vomiting, hematuria, hematochezia, chest pain, shortness of breath, recent travel outside of country or any other complaints. Time/Duration: < week Symptom Onset: Gradual Symptom Course: Worsening Quality: Aching Activities at Onset: Light Context: Home Past Medical History - Provider Review Nursing Documentation Reviewed: Yes - Past History Past History: No Previous - Infectious Disease Hx of Infectious Diseases: None - Tetanus Immunization Tetanus Immunization: Unknown - Cardiac Hx Cardiac Disorders: No - Pulmonary Hx Respiratory Disorders: No - Neurological Hx Neurological Disorder: No - HEENT Hx HEENT Disorder: No - Renal Hx Renal Disorder: Yes Other/Comment: BLOOD IN URINE, MSK (medullary sponge kidney) - Endocrine/Metabolic Hx Endocrine Disorders: Yes Other/Comment: Hypoglycemia - Hematological/Oncological Hx Blood Disorders: Yes Other/Comment: Factor XI, Factor XII - Integumentary Hx Dermatological Disorder: No - Musculoskeletal/Rheumatological Hx Musculoskeletal Disorders: No - Gastrointestinal Hx Gastroesophageal Reflux: Yes Hx Irritable Bowel: Yes Other/Comment: esophagitis - Genitourinary/Gynecological Hx Genitourinary Disorders: No - Psychiatric Hx Psychophysiologic Disorder: Yes Hx Anxiety: Yes Hx Panic Disorder: Yes Hx Substance Use: No - Surgical History Hx Appendectomy: Yes Hx Dilation and Curettage: Yes (3) Other/Comment: CYSTOSCOPY, 2X - Anesthesia Hx Anesthesia: Yes Hx Anesthesia Reactions: No Hx Malignant Hyperthermia: No Family/Social History - Physician Review Nursing Documentation Reviewed: Yes Family/Social History: No Known Family HX Smoking Status: e-cig Hx Alcohol Use: No Hx Substance Use: No Allergies/Home Meds Allergies/Adverse Reactions: Allergies acetaminophen Allergy (Verified 03/19/17 00:18) ANAPHYLAXIS amoxicillin Allergy (Verified 11/23/17 00:18) URTICARIA ciprofloxacin [From Cipro] Allergy (Verified 03/19/17 00:18) URTICARIA ciprofloxacin HCl [From Cipro] Allergy (Verified 03/19/17:18) URTICARIA doxycycline Allergy (Verified 03/19/17 00:18) URTICARIA Penicillins Allergy (Verified 03/19/17 00:18) URTICARIA phenytoin sodium [From Dilantin] Allergy (Verified 03/19/17:18) URTICARIA phenytoin sodium extended [From Dilantin] Allergy (Verified 03/19/17 00:18) URTICARIA sulfamethoxazole [From Bactrim] Allergy (Verified 03/19/17:18) URTICARIA trimethoprim [From Bactrim] Allergy (Verified 03/19/17:18) URTICARIA Home Medications: Home Meds Medication Instructions Recorded Confirmed QUEtiapine [Seroquel XR] 50 mg PO HS 05/06/16 05/22/17 Ondansetron ODT [Zofran ODT] 4 mg PO DAILY 02/10/17 05/22/17 Clonazepam [Klonopin] 0.5 mg PO PRN PRN 03/19/17 05/22/17 Bismuth Subsalicylate [Pepto 262 mg PO DAILY 05/22/17 05/22/17 Bismol] Review of Systems - Physician Review All systems were reviewed & negative as marked: Yes - Review of Systems Constitutional: Normal. absent: Fevers Eyes: Normal ENT: Normal Respiratory: Normal. absent: SOB Cardiovascular: Normal. absent: Chest Pain Gastrointestinal: Abdominal Pain (upper abdominal pain ). absent: Diarrhea, Nausea, Vomiting, Hematochezia Genitourinary Female: Normal. absent: Hematuria Musculoskeletal: Normal Skin: Normal Neurological: Normal Endocrine: Normal Hemo/Lymphatic: Normal Psychiatric: Normal Physical Exam Vital Signs Reviewed: Yes Vital Signs Temp Pulse Resp BP Pulse Ox 05/22/17 05:05 74 18 120/80 100 05/22/17 02:35 97.4 F L 83 18 110/74 100 Temperature: Afebrile Blood Pressure: Normal Pulse: Regular Respiratory Rate: Normal Appearance: Positive for: Well-Appearing, Non-Toxic, Comfortable Pain Distress: None Mental Status: Positive for: Alert and Oriented X 3 - Systems Exam Head: Present: Atraumatic, Normocephalic Pupils: Present: PERRL Extroacular Muscles: Present: EOMI Conjunctiva: Present: Normal Mouth: Present: Moist Mucous Membranes Neck: Present: Normal Range of Motion. No: Paraspinal Tenderness Respiratory/Chest: Present: Clear to Auscultation, Good Air Exchange. No: Respiratory Distress, Accessory Muscle Use Cardiovascular: Present: Regular Rate and Rhythm, Normal S1, S2. No: Murmurs Abdomen: Present: Tenderness (mild upper quadrant tenderness ), Normal Bowel Sounds. No: Distention, Peritoneal Signs Back: Present: Normal Inspection. No: CVA Tenderness, Midline Tenderness, Paraspinal Tenderness Upper Extremity: Present: Normal Inspection. No: Cyanosis, Edema Lower Extremity: Present: Normal Inspection. No: Edema Neurological: Present: GCS=15, CN II-XII Intact, Speech Normal Skin: Present: Warm, Dry, Normal Color. No: Rashes Psychiatric: Present: Alert, Oriented x 3, Normal Insight, Normal Concentration Medical Decision Making ED Course and Treatment: 05/22/17 03:01 Impression: 27 year old female presents to the Emergency department for upper abdominal discomfort. Plan: -- CT of Abd/ Pelvis -- Labs -- Pepcid -- IV Fluids -- Urinalysis -- Reassess and disposition Progress Notes: 05/22/17 06:05 CT of Abdomen/Pelvis reviewed by radiologist, shows no acute findings. - Lab Interpretations Lab Results: 05/22/17 03:20 05/22/17 03:20 Lab Results 05/22/17 03:20: Sodium 137, Potassium 3.9, Chloride 103, Carbon Dioxide 25, Anion Gap 13, BUN 14, Creatinine 0.8, Est GFR ( Amer) > 60, Est GFR (Non- Af Amer) > 60, Random Glucose 87, Calcium 9.2, Total Bilirubin 0.3, AST 20, ALT 15, Alkaline Phosphatase 43, Total Protein 6.5, Albumin 3.9, Globulin 2.6, Albumin/Globulin Ratio 1.5, Amylase 126 H, Lipase 189 05/22/17 03:20: APTT 42.3 H 05/22/17 03:20: WBC 4.9, RBC 4.21, Hgb 11.5 L, Hct 35.4 L, MCV 84.1, MCH 27.3, MCHC 32.5, RDW 13.4, Plt Count 221, MPV 12.2 H, Gran % 42.0 L, Lymph % (Auto) 40.4 H, [place] % (Auto) 14.6 H, Eos % (Auto) 2.0, Baso % (Auto) 1.0, Gran # 2.06, Lymph # 2.0, [place] # 0.7 H, Eos # 0.1, Baso # 0.05 05/22/17 02:45: Urine Color Yellow, Urine Appearance Clear, Urine pH 7.5, Ur Specific [place] 1.015, Urine Protein Negative, Urine Glucose (UA) Negative, Urine Ketones Negative, Urine Blood Negative, Urine Nitrate Negative, Urine Bilirubin Negative, Urine Urobilinogen 0.2, Ur Leukocyte Esterase Negative - RAD Interpretation Radiology Orders: 05/22/17 03:01 ABD PELVIS PO & IV CONTRAST [CT] Stat Crew Boss: Radiologist - Medication Orders Current Medication Orders: Discontinued Medications Famotidine (Pepcid) 20 mg IVP STAT STA Stop: 05/22/17 03:08 Last Admin: 05/22/17 03:27 Dose: 20 mg IVP Administration Document 05/22/17 03:27 CNR (Rec: 05/22/17 03:27 CNR [id number]) Charges for Administration # of IVP Administrations 1 Sodium Chloride (Sodium Chloride 0.9%) 1,000 mls @ 1,000 mls/hr IV .Q1H STA Stop: 05/22/17 04:06 Last Admin: 05/22/17 03:27 Dose: 1,000 mls/hr eMAR Start Stop Document 05/22/17 03:27 CNR (Rec: 05/22/17 03:27 CNR [id number]) Intravenous Solution Start Date 05/22/17 Start Time 03:27 Ondansetron HCl (Zofran Inj) 4 mg IVP STAT STA Stop: 05/22/17 05:40 Last Admin: 05/22/17 05:19 Dose: 4 mg IVP Administration Document 05/22/17 05:19 CNR (Rec: 05/22/17 05:43 CNR [id number]) Charges for Administration # of IVP Administrations 1 - Scribe Statement The provider has reviewed the documentation as recorded by the Inesibrigo Holden. All medical record entries made by the Scribe were at my direction and personally dictated by me. I have reviewed the chart and agree that the record accurately reflects my personal performance of the history, physical exam, medical decision making, and the department course for this patient. I have also personally directed, reviewed, and agree with the discharge instructions and disposition. Disposition/Present on Arrival - Present on Arrival Any Indicators Present on Arrival: No History of DVT/PE: No History of Uncontrolled Diabetes: No Urinary Catheter: No History of Decub. Ulcer: No History Surgical Site Infection Following: None - Disposition Have Diagnosis and Disposition been Completed?: Yes Diagnosis: Constipation, Gastritis Disposition: HOME/ ROUTINE Disposition Time: 06:05 Patient Problems: Current Active Problems Problem Status Onset Constipation Acute Gastritis Acute Condition: GOOD Discharge Instructions (ExitCare): Gastritis (ED), Constipation (ED) Additional Instructions: Thank you for letting us take care of you today. The emergency medical care you received today was directed at your acute symptoms. If you were prescribed any medication, please fill it and take as directed. It may take several days for your symptoms to resolve. Return to the Emergency Department if your symptoms worsen, do not improve, or if you have any other problems. Please contact your doctor or call one of the physicians/clinics you have been referred to that are listed on the Patient Visit Information form that is included in your discharge packet. Bring any paperwork you were given at discharge with you along with any medications you are taking to your follow up visit. Our treatment cannot replace ongoing medical care by a primary care provider (PCP) outside of the emergency department. Thank you for allowing the [facility] team to be part of your care today. Follow up with your GI doctor in 3-4 days for re-evaluation and further management. Prescriptions: Ondansetron ODT [Zofran ODT] 4 mg PO Q8 PRN #20 odt PRN Reason: Nausea/Vomiting Sucralfate [Carafate Tab] 1 gm PO QID #28 tab Referrals: Shyla Escobar MD [Primary Care Provider] - Follow up with primary Forms: [employer] (Mauritanian)
[2017-05-22] MEDS ORDERED: Iohexol 350 MG/100 ML VIAL ONE (04:50)
[2017-05-22 05:06] VITALS: BP 120/80; PULSE 74
--- NOTE | 2017-05-22 06:04 | CT ---
EXAM: CT Abdomen and Pelvis With Intravenous Contrast CLINICAL HISTORY: 27 years old, female; Pain; Abdominal pain; Generalized; Prior surgery; Surgery date: 6+ months; Additional info: Upper abdominal pain TECHNIQUE: Axial computed tomography images of the abdomen and pelvis with intravenous contrast. All CT scans at this facility use one or more dose reduction techniques, viz.: automated exposure control; ma/kV adjustment per patient size (including targeted exams where dose is matched to indication; i.e. head); or iterative reconstruction technique. 583 images are submitted. Oral contrast was administered. Coronal and sagittal reformatted images were created and reviewed. CONTRAST: 96 mL of OMNI 350 administered intravenously. COMPARISON: CT - ABD PELVIS W/O PO OR IV CONT 2016-12-24 02:26 FINDINGS: Lower thorax: Small right pericardial fluid. ABDOMEN: Liver: Periportal edema. Gallbladder and bile ducts: Unremarkable. No ductal dilation. Pancreas: Unremarkable. No mass. No ductal dilation. Spleen: Unremarkable. No splenomegaly. Adrenals: Unremarkable. No mass. Kidneys and ureters: Distention of bilateral extrarenal pelvis. Left renal hypodensity likely representing cyst. No hydronephrosis. Stomach and bowel: Large amount of stool in the colon. Correlation with patient's clinical history of constipation is recommended. No mucosal thickening. Appendix: Appendectomy. PELVIS: Bladder: Bladder distention. Correlation with patient's voiding status is recommended. Reproductive: Uterus is seen. Bilateral ovarian follicles. ABDOMEN and PELVIS: Intraperitoneal space: Unremarkable. No free air. No significant fluid collection. Bones/joints: No acute fracture. No dislocation. Soft tissues: Unremarkable. Vasculature: Unremarkable. No abdominal aortic aneurysm. Lymph nodes: Unremarkable. No enlarged lymph nodes. IMPRESSION: No acute findings.
== END 2017-05-22 06:39 | disposition home or self-care (01) ==
LOC: ED 02:12
DX: K29.70 Gastritis, unspecified, without bleeding (principal); K59.00 Constipation, unspecified
CPT/HCPCS: 74177; 80053; 81003; 82150; 83690; 85025; 85730; 87086; 96374; 96375; 99284; J2405; J7040; Q9966; Q9967

== ENCOUNTER 2017-09-20 05:11 | Emergency (ER) | payer BC ==
[2017-09-20 05:12] VITALS: BMI 18.6
--- NOTE | 2017-09-20 05:50 | ED PDOC ---
Arrival/HPI - General Time Seen by Provider: 09/20/17 05:14 Historian: Patient - History of Present Illness Narrative History of Present Illness (Text): 09/20/17 05:47 27 eyar old female, whose past medical history includes, anxiety, esophagitis, medullary sponge kidney disease, factor XI and XII deficiency, chronic nausea, GERD, and appendectomy, presents complaining of onset of left flank discomfort and lower left abdominal discomfort. Patient is also recently had history of dysuria and urinary frequency. Patient also states she became anxious following onset of symptoms, but feels calmer currently. Patient denies any fever, chills , chest pain, shortness of breath, nausea, vomiting, diarrhea, back pain, neck pain, headache, dizziness, or any other complaints. PMD: Dr. Shyla Escobar Symptom Onset: Gradual Symptom Course: Unchanged Activities at Onset: Light Context: Home Past Medical History - Provider Review Nursing Documentation Reviewed: Yes - Past History Past History: No Previous - Infectious Disease Hx of Infectious Diseases: None - Tetanus Immunization Tetanus Immunization: Unknown - Cardiac Hx Cardiac Disorders: No - Pulmonary Hx Respiratory Disorders: No - Neurological Hx Neurological Disorder: No - HEENT Hx HEENT Disorder: No - Renal Hx Renal Disorder: Yes Other/Comment: BLOOD IN URINE, MSK (medullary sponge kidney) - Endocrine/Metabolic Hx Endocrine Disorders: Yes Other/Comment: Hypoglycemia - Hematological/Oncological Hx Blood Disorders: Yes Other/Comment: Factor XI, Factor XII - Integumentary Hx Dermatological Disorder: No - Musculoskeletal/Rheumatological Hx Musculoskeletal Disorders: No - Gastrointestinal Hx Gastroesophageal Reflux: Yes Hx Irritable Bowel: Yes Other/Comment: esophagitis - Genitourinary/Gynecological Hx Genitourinary Disorders: No - Psychiatric Hx Psychophysiologic Disorder: Yes Hx Anxiety: Yes Hx Panic Disorder: Yes Hx Substance Use: No - Surgical History Hx Appendectomy: Yes Hx Dilation and Curettage: Yes (3) Other/Comment: CYSTOSCOPY, 2X - Anesthesia Hx Anesthesia: Yes Hx Anesthesia Reactions: No Hx Malignant Hyperthermia: No Family/Social History - Physician Review Nursing Documentation Reviewed: Yes Family/Social History: No Known Family HX Smoking Status: e-cig Hx Alcohol Use: No Hx Substance Use: No Allergies/Home Meds Allergies/Adverse Reactions: Allergies acetaminophen Allergy (Verified 09/20/17 05:50) ANAPHYLAXIS amoxicillin Allergy (Verified 09/20/17 05:50) URTICARIA ciprofloxacin [From Cipro] Allergy (Verified 09/20/17 05:50) URTICARIA ciprofloxacin HCl [From Cipro] Allergy (Verified 09/20/17 05:50) URTICARIA doxycycline Allergy (Verified 09/20/17 05:50) URTICARIA Penicillins Allergy (Verified 09/20/17 05:50) URTICARIA phenytoin sodium [From Dilantin] Allergy (Verified 09/20/17 05:50) URTICARIA phenytoin sodium extended [From Dilantin] Allergy (Verified 09/20/17 05:50) URTICARIA sulfamethoxazole [From Bactrim] Allergy (Verified 09/20/17 05:50) URTICARIA trimethoprim [From Bactrim] Allergy (Verified 09/20/17 05:50) URTICARIA Home Medications: Home Meds Medication Instructions Recorded Confirmed QUEtiapine [Seroquel XR] 50 mg PO HS 05/06/16 09/20/17 Clonazepam [Klonopin] 0.5 mg PO PRN PRN 03/19/17 09/20/17 Bismuth Subsalicylate [Pepto 262 mg PO DAILY 05/22/17 09/20/17 Bismol] Review of Systems - Physician Review All systems were reviewed & negative as marked: Yes - Review of Systems Constitutional: absent: Fevers, Other (Chills) Respiratory: absent: SOB Cardiovascular: absent: Chest Pain Gastrointestinal: Abdominal Pain (lower left abdominal discomfort). absent: Diarrhea, Nausea, Vomiting Genitourinary Female: Dysuria, Frequency. absent: Hematuria Musculoskeletal: Other (left flank discomfort). absent: Neck Pain Neurological: absent: Headache, Dizziness Psychiatric: Anxiety Physical Exam Vital Signs Reviewed: Yes Vital Signs Pulse Resp BP Pulse Ox 09/20/17 05:30 86 20 114/68 98 Blood Pressure: Normal Pulse: Regular Respiratory Rate: Normal Appearance: Positive for: Well-Appearing, Non-Toxic, Comfortable Pain Distress: None Mental Status: Positive for: Alert and Oriented X 3 - Systems Exam Head: Present: Atraumatic, Normocephalic Pupils: Present: PERRL Extroacular Muscles: Present: EOMI Conjunctiva: Present: Normal Mouth: Present: Moist Mucous Membranes Neck: Present: Normal Range of Motion Respiratory/Chest: Present: Clear to Auscultation, Good Air Exchange. No: Respiratory Distress, Accessory Muscle Use Cardiovascular: Present: Regular Rate and Rhythm, Normal S1, S2. No: Murmurs Abdomen: No: Tenderness, Distention, Peritoneal Signs Back: Present: Normal Inspection Upper Extremity: Present: Normal Inspection. No: Cyanosis, Edema Lower Extremity: Present: Normal Inspection. No: Edema Neurological: Present: GCS=15, CN II-XII Intact, Speech Normal Skin: Present: Warm, Dry, Normal Color. No: Rashes Psychiatric: Present: Alert, Oriented x 3, Normal Insight, Normal Concentration Medical Decision Making ED Course and Treatment: 09/20/17 05:49 Impression: 27 year old female presents complaining of presents complaining of onset of left flank discomfort and lower left abdominal discomfort. Patient is also recently had history of dysuria and urinary frequency. Plan: -- Labs -- IV Fluids -- HCG, Qualit. Urine, Urinalysis -- Reassess and disposition Prior Visits: Notes and results from previous visits were reviewed. Patient was last seen in the emergency department on 05/22/17 presents complaining of upper abdominal discomfort for the past 2 days. Patient was discharged. Progress Notes: 09/20/17 07:00 Case endorsed to /pending lab results/reassess/further evaluation as needed/final disposition - Lab Interpretations I have reviewed the lab results: Yes - Medication Orders Current Medication Orders: Sodium Chloride (Sodium Chloride 0.9%) 1,000 mls @ 999 mls/hr IV .Q1H1M STA Stop: 09/20/17 06:55 Last Admin: 09/20/17 06:15 Dose: 999 mls/hr eMAR Start Stop Document 09/20/17 06:15 SAMANTHA (Rec: 09/20/17 06:26 SAMANTHA [id number]) Intravenous Solution Start Date 09/20/17 Start Time 06:15 End Date 09/20/17 - Scribe Statement The provider has reviewed the documentation as recorded by the Mayela Dutta Provider Scribe Attestation: All medical record entries made by the Scribe were at my direction and personally dictated by me. I have reviewed the chart and agree that the record accurately reflects my personal performance of the history, physical exam, medical decision making, and the department course for this patient. I have also personally directed, reviewed, and agree with the discharge instructions and disposition. Disposition/Present on Arrival - Present on Arrival Any Indicators Present on Arrival: No History of DVT/PE: No History of Uncontrolled Diabetes: No Urinary Catheter: No History Surgical Site Infection Following: None - Disposition Have Diagnosis and Disposition been Completed?: No Diagnosis: Flank pain, Dysuria Disposition Time: 07:00 Condition: STABLE Referrals: PCP,NO [Non-Staff] - Follow up with primary
[2017-09-20] MEDS ORDERED: Sodium Chloride 0.9% 1,000 ML IV STA (05:55)
[2017-09-20 07:03] LABS: HEMOGLOBIN 12.1 g/dL (12.0-16.0); MEAN CELL VOLUME 80.8 fl (80.0-105.0); MEAN CORPUSCULAR HEMOGLOBIN 26.9 pg (25.0-35.0); MEAN CORPUSCULAR HGB CONC 33.3 g/dl (31.0-37.0); MEAN PLATELET VOLUME 12.1 fl (7.0-11.0); RBC 4.49 10^6/uL (3.5-6.1); RED CELL DISTRIBUTION WIDTH 13.2 % (11.5-14.5); WHITE BLOOD COUNT 5.8 10^3/ul (4.5-11.0)
[2017-09-20 07:04] LABS: URINE BILIRUBIN NEGATIVE (NEGATIVE); URINE BLOOD NEGATIVE (NEGATIVE); URINE GLUCOSE (UA) NEGATIVE (NEGATIVE); URINE LEUKOCYTE ESTERASE NEGATIVE Leu/uL (NEGATIVE); URINE PROTEIN TRACE mg/dL (<30 mg/dL); URINE UROBILINOGEN 0.2 E.U./dL (<1 E.U./dL)
[2017-09-20 07:14] LABS: URINE APPEARANCE SL CLOUDY (CLEAR); URINE COLOR YELLOW (YELLOW)
[2017-09-20 07:15] LABS: HCG,QUALITATIVE URINE NEGATIVE (NEGATIVE)
[2017-09-20 07:16] LABS: URINE AMORPHOUS SEDIMENT FEW; URINE BACTERIA SMALL (NEG); URINE EPITHELIAL CELLS 0 - 2 /hpf (0-5); URINE RBC NEGATIVE /hpf (0-2); URINE WBC 0 - 2 /hpf (0-6)
--- NOTE | 2017-09-20 07:18 | ED PDOC ---
Physical Exam - Physical Exam Narrative Physical Exam (Text): 09/20/17 07:16 Case endorsed to me by Dr. Cruz for pending lab results, reassessment, further evaluation and final disposition. Patient is a 27 year old female who presents to the Emergency department complaining of left flank discomfort and lower left abdominal pain since prior to arrival. Patient additionally expressed recent history of dysuria. Patient is currently in stable condition and is in no acute distress. Patient denies any new complaints. Vital Signs Reviewed: Yes Vital Signs Temp Pulse Resp BP Pulse Ox 09/20/17 07:12 98.6 F 78 18 122/79 98 09/20/17 05:30 86 20 114/68 98 Temperature: Afebrile Blood Pressure: Normal Pulse: Regular Respiratory Rate: Normal Appearance: Positive for: Well-Appearing, Non-Toxic, Comfortable Pain Distress: None Mental Status: Positive for: Alert and Oriented X 3 - Systems Exam Head: Present: Atraumatic, Normocephalic Pupils: Present: PERRL Extroacular Muscles: Present: EOMI Conjunctiva: Present: Normal Ears: Present: Normal Mouth: Present: Moist Mucous Membranes Pharnyx: Present: Normal Nose (External): Present: Atraumatic Nose (Internal): Present: Normal Inspection Neck: Present: Normal Range of Motion Respiratory/Chest: Present: Clear to Auscultation, Good Air Exchange. No: Respiratory Distress, Accessory Muscle Use Cardiovascular: Present: Regular Rate and Rhythm, Normal S1, S2. No: Murmurs Abdomen: No: Tenderness, Distention, Normal Bowel Sounds, Peritoneal Signs, Rebound, Guarding, McBurney's Point Tender, Rovsing's Sign Present, Hernias, Feeding Tubes, Ostomy Tubes, Mass/Organomegaly, Scars, Other Back: Present: Normal Inspection Upper Extremity: Present: Normal Inspection. No: Cyanosis, Edema Lower Extremity: Present: Normal Inspection. No: Edema Neurological: Present: GCS=15, CN II-XII Intact, Speech Normal Skin: Present: Warm, Dry, Normal Color. No: Rashes Psychiatric: Present: Alert, Oriented x 3, Normal Insight, Normal Concentration Medical Decision Making ED Course and Treatment: 09/20/17 07:19 Impression: 27 year old female presents to the Emergency department for left flank discomfort and lower left abdominal discomfort. Case endorsed to me by Dr. Cruz. Plan: -- Pending Lab results -- Reassess and disposition Progress Notes: 09/20/17 08:37 you were treated in the ED today for hx of kidney stones, left flank discomfort and lower left abdominal discomfort and urinary burning but otherwise without any nausea/vomiting/headache/dizziness/difficulty breathing/chest pain/abdomen pain/numbness/tingling/loss of limb function/blood with urination/vaginal bleeding or discharge. You refused sexual disease testing or treatment at this time. You were otherwise breathing easily, pink moist lips, smiling and talking easily with your boyfriend, good strength/sensation, alert/oriented, walking easily, clear lungs, no abdomen tenderness, no spinal tenderness or redness, no fever temp 98.6, stable heart rate 86, stable breathing rate 20, excellent oxygen level 98% room air, stable blood pressure 114/68 which we recommend repeat in 2-3 days primary care office to determine further treatment, you have blood tests no infection count 5.8, stable blood level hemoglobin 12/platelets 250, stable chemistry, lipase normal 235, urine test no acute sign of infection , urine test negative, saline, toradol, pyrdium, observation done in the ED with improvement, had a long discussion with you at this time and you refused pelvic exam and stated you had one done recently with pap smear and refused radiology imaging at this time and cautioned for complications, but you stated you felt improved and wanted treatment for urinary burning but not antibiotics at this time, counselled to drink lots of fluids and use strainer when passing urine to see if passage of kidney stone and thus discharged home with boyfriend. 1. Recommend pyridium as directed for urinary burning. 2. Recommend flomax as directed for passage of possible small kidney stone. 3. Recommend follow-up primary care 2 days to review symptoms, get final urine culture report to determine further treatment, referral to urology to review your symptoms/protein in urine to ensure no complications. 4. If any worsening pain, fever, chills, nausea, vomiting, difficulty breathing, numbness, loss of limb function, pain with urination or any medical condition then return to the ED. Reassessment Condition: Re-examined, Improved - Lab Interpretations Lab Results: 09/20/17 06:50 09/20/17 06:50 Lab Results 09/20/17 06:50: WBC 5.8, RBC 4.49, Hgb 12.1, Hct 36.3, MCV 80.8 D, MCH 26.9, MCHC 33.3, RDW 13.2, Plt Count 250, MPV 12.1 H 09/20/17 06:50: Sodium 144, Potassium 4.1, Chloride 101, Carbon Dioxide 28, Anion Gap 19, BUN 17, Creatinine 0.9, Est GFR ( Amer) > 60, Est GFR (Non- Af Amer) > 60, Random Glucose 93, Calcium 10.2, Total Bilirubin 0.3, AST 23, ALT 18, Alkaline Phosphatase 64, Total Protein 7.3, Albumin 4.4, Globulin 2.9, Albumin/Globulin Ratio 1.5, Lipase 235 09/20/17 06:30: Urine Color Yellow, Urine Appearance Sl cloudy, Urine pH 8.0, Ur Specific [place] 1.015, Urine Protein Trace H, Urine Glucose (UA) Negative, Urine Ketones Negative, Urine Blood Negative, Urine Nitrate Negative, Urine Bilirubin Negative, Urine Urobilinogen 0.2, Ur Leukocyte Esterase Negative, Urine RBC Negative, Urine WBC 0 - 2, Ur Epithelial Cells 0 - 2, Amorphous Sediment Few, Urine Bacteria Small, Urine HCG, Qual Negative I have reviewed the lab results: Yes - Medication Orders Current Medication Orders: Discontinued Medications Alprazolam (Xanax) 0.25 mg PO ONCE ONE Stop: 09/20/17 06:54 Last Admin: 09/20/17 07:20 Dose: 0.25 mg Sodium Chloride (Sodium Chloride 0.9%) 1,000 mls @ 999 mls/hr IV .Q1H1M STA Stop: 09/20/17 06:55 Last Admin: 09/20/17 06:15 Dose: 999 mls/hr eMAR Start Stop Document 09/20/17 06:15 RG (Rec: 09/20/17 06:26 RG [id number]) Intravenous Solution Start Date 09/20/17 Start Time 06:15 End Date 09/20/17 Ketorolac Tromethamine (Toradol) 30 mg IVP ONCE ONE Stop: 09/20/17 06:54 Last Admin: 09/20/17 07:20 Dose: 30 mg MAR Pain Assessment Document 09/20/17 07:20 EWO (Rec: 09/20/17 07:20 EWO [id number]) Pain Reassessment Is this a pain reassessment? No Sleep Is patient sleeping during reassessment? No IVP Administration Document 09/20/17 07:20 DONG (Rec: 09/20/17 07:20 Sekou [id number]) Charges for Administration # of IVP Administrations 1 - Scribe Statement The provider has reviewed the documentation as recorded by the Scribe Kenisha Holden. All medical record entries made by the Scribe were at my direction and personally dictated by me. I have reviewed the chart and agree that the record accurately reflects my personal performance of the history, physical exam, medical decision making, and the department course for this patient. I have also personally directed, reviewed, and agree with the discharge instructions and disposition. Disposition/Present on Arrival - Present on Arrival Any Indicators Present on Arrival: No History of DVT/PE: No History of Uncontrolled Diabetes: No Urinary Catheter: No History of Decub. Ulcer: No History Surgical Site Infection Following: None - Disposition Have Diagnosis and Disposition been Completed?: Yes Diagnosis: Flank pain, Dysuria Disposition: HOME/ ROUTINE Disposition Time: 08:44 Patient Problems: Current Active Problems Problem Status Onset Flank pain Acute Dysuria Acute Condition: STABLE Discharge Instructions (ExitCare): Dysuria, Adult (DC) Additional Instructions: you were treated in the ED today for hx of kidney stones, left flank discomfort and lower left abdominal discomfort and urinary burning but otherwise without any nausea/vomiting/headache/dizziness/difficulty breathing/chest pain/abdomen pain/numbness/tingling/loss of limb function/blood with urination/vaginal bleeding or discharge. You refused sexual disease testing or treatment at this time. You were otherwise breathing easily, pink moist lips, smiling and talking easily with your boyfriend, good strength/sensation, alert/oriented, walking easily, clear lungs, no abdomen tenderness, no spinal tenderness or redness, no fever temp 98.6, stable heart rate 86, stable breathing rate 20, excellent oxygen level 98% room air, stable blood pressure 114/68 which we recommend repeat in 2-3 days primary care office to determine further treatment, you have blood tests no infection count 5.8, stable blood level hemoglobin 12/platelets 250, stable chemistry, lipase normal 235, urine test no acute sign of infection , urine test negative, saline, toradol, pyrdium, observation done in the ED with improvement, had a long discussion with you at this time and you refused pelvic exam and stated you had one done recently with pap smear and refused radiology imaging at this time and cautioned for complications, but you stated you felt improved and wanted treatment for urinary burning but not antibiotics at this time, counselled to drink lots of fluids and use strainer when passing urine to see if passage of kidney stone and thus discharged home with boyfriend. 1. Recommend pyridium as directed for urinary burning. 2. Recommend flomax as directed for passage of possible small kidney stone. 3. Recommend follow-up primary care 2 days to review symptoms, get final urine culture report to determine further treatment, referral to urology to review your symptoms/protein in urine to ensure no complications. 4. If any worsening pain, fever, chills, nausea, vomiting, difficulty breathing, numbness, loss of limb function, pain with urination or any medical condition then return to the ED. Prescriptions: Phenazopyridine HCl [Pyridium] 100 mg PO Q8 PRN 2 Days #6 tablet PRN Reason: urinary burining Tamsulosin [Flomax] 0.4 mg PO DAILY 30 Days #30 cap Referrals: PCP,NO [Non-Staff] - Follow up with primary
[2017-09-20 07:24] LABS: ALB/GLOB RATIO 1.5 (1.1-1.8); ALBUMIN 4.4 g/dL (3.0-4.8); ALT/SGPT 18 U/L (7-56); AST/SGOT 23 U/L (14-36); BLOOD UREA NITROGEN 17 mg/dL (7-21); CALCIUM 10.2 mg/dL (8.4-10.5); GFR AFRICAN-AMERICAN > 60; GFR NON-AFRICAN AMERICAN > 60; LIPASE 235 U/L (23-300)
[2017-09-20 07:37] VITALS: RESP 18; TEMP 98.6
[2017-09-20 08:51] VITALS: BP 132/79; PULSE 79; O2SAT 99
== END 2017-09-20 08:49 | disposition home or self-care (01) ==
LOC: ED 05:11
DX: R30.0 Dysuria (principal); R10.9 Unspecified abdominal pain
CPT/HCPCS: 80053; 81001; 83690; 84703; 85027; 87086; 96374; 99284; J1885; J7040

== ENCOUNTER 2017-11-13 20:51 | Emergency (ER) | payer BC ==
[2017-11-13 20:51] VITALS: BMI 18.6
[2017-11-13] MEDS ORDERED: Sodium Chloride 0.9% 1,000 ML IV STA (22:13)
--- NOTE | 2017-11-13 22:13 | ED PDOC ---
Arrival/HPI <Mick Cruz - Last Filed: 11/13/17 22:44> - General Historian: Patient <Americo Daniels - Last Filed: 11/16/17 09:12> - General Chief Complaint: Dizziness/Lightheaded Time Seen by Provider: 11/13/17 21:52 - History of Present Illness Narrative History of Present Illness (Text): 11/13/17 22:09 27 y/o female, pmh including UTI/Pylonephritis/MCAD deficiency with frequent hypoglycemia, allergic to tylenol/amoxicillin/fluoroqinolones/doxycylin, c/o feeling dizziness x 1 day with no fall or trauma. Pt. stated that she feels dizziness with room spinning sensation, aggravated by sudden head movement, no change in vision, no headache, no dizziness, no numbness or tingling, no palpitation, no chest pain, no recent illness, no other medical or psychological complaints. (Americo Daniels) Past Medical History - Provider Review Nursing Documentation Reviewed: Yes - Past History Past History: No Previous - Infectious Disease Hx of Infectious Diseases: None - Tetanus Immunization Tetanus Immunization: Unknown - Cardiac Hx Cardiac Disorders: No - Pulmonary Hx Respiratory Disorders: No - Neurological Hx Neurological Disorder: No - HEENT Hx HEENT Disorder: No - Renal Hx Renal Disorder: Yes Other/Comment: BLOOD IN URINE, MSK (medullary sponge kidney) - Endocrine/Metabolic Hx Endocrine Disorders: Yes Other/Comment: Hypoglycemia - Hematological/Oncological Hx Blood Disorders: Yes Other/Comment: Factor XI, Factor XII - Integumentary Hx Dermatological Disorder: No - Musculoskeletal/Rheumatological Hx Musculoskeletal Disorders: No - Gastrointestinal Hx Gastroesophageal Reflux: Yes Hx Irritable Bowel: Yes Other/Comment: esophagitis - Genitourinary/Gynecological Hx Genitourinary Disorders: No - Psychiatric Hx Psychophysiologic Disorder: Yes Hx Anxiety: Yes Hx Panic Disorder: Yes Hx Substance Use: Yes - Surgical History Hx Appendectomy: Yes Hx Dilation and Curettage: Yes (3) Other/Comment: CYSTOSCOPY, 2X - Anesthesia Hx Anesthesia: Yes Hx Anesthesia Reactions: No Hx Malignant Hyperthermia: No <Americo Daniels - Last Filed: 11/16/17 09:12> Family/Social History - Physician Review Nursing Documentation Reviewed: Yes Family/Social History: Unknown Family HX Smoking Status: electronic Hx Alcohol Use: No Hx Substance Use: Yes <Americo Daniels - Last Filed: 11/16/17 09:12> Allergies/Home Meds <Mick Cruz - Last Filed: 11/13/17 22:44> <Americo Daniels - Last Filed: 11/16/17 09:12> Allergies/Adverse Reactions: Allergies acetaminophen Allergy (Verified 11/13/17 21:37) ANAPHYLAXIS amoxicillin Allergy (Verified 11/13/17 21:37) URTICARIA ciprofloxacin [From Cipro] Allergy (Verified 11/13/17 21:37) URTICARIA ciprofloxacin HCl [From Cipro] Allergy (Verified 11/13/17 21:37) URTICARIA doxycycline Allergy (Verified 11/13/17 21:37) URTICARIA Penicillins Allergy (Verified 11/13/17 21:37) URTICARIA phenytoin sodium [From Dilantin] Allergy (Verified 11/13/17 21:37) URTICARIA phenytoin sodium extended [From Dilantin] Allergy (Verified 11/13/17 21:37) URTICARIA sulfamethoxazole [From Bactrim] Allergy (Verified 11/13/17 21:37) URTICARIA trimethoprim [From Bactrim] Allergy (Verified 11/13/17 21:37) URTICARIA Home Medications: Home Meds Medication Instructions Recorded Confirmed QUEtiapine [Seroquel XR] 50 mg PO HS 05/06/16 11/13/17 Clonazepam [Klonopin] 0.5 mg PO PRN PRN 03/19/17 11/13/17 Bismuth Subsalicylate [Pepto 262 mg PO DAILY 05/22/17 11/13/17 Bismol] Loperamide HCl [Imodium A-D] 2 mg PO DAILY PRN 11/13/17 11/13/17 Review of Systems - Review of Systems Constitutional: absent: Fatigue, Fevers Eyes: absent: Vision Changes ENT: absent: Hearing Changes Respiratory: absent: SOB, Cough Cardiovascular: absent: Chest Pain Gastrointestinal: absent: Abdominal Pain, Diarrhea, Nausea, Vomiting Skin: absent: Rash, Pruritis Neurological: Dizziness. absent: Headache, Focal Weakness, Gait Changes, Speech Changes, Facial Droop, Disequilibrium, Seizure Psychiatric: absent: Anxiety, Depression, Suicidal Ideation <Americo Daniels - Last Filed: 11/16/17 09:12> Physical Exam Vital Signs Reviewed: Yes Temperature: Afebrile Blood Pressure: Normal Pulse: Regular Respiratory Rate: Normal Appearance: Positive for: Well-Appearing, Non-Toxic, Comfortable Pain Distress: None Mental Status: Positive for: Alert and Oriented X 3 - Systems Exam Head: Present: Atraumatic, Normocephalic. No: Tenderness, Contusion, Swelling, Ecchymosis, Abrasion, Laceration, Other Pupils: Present: PERRL Extroacular Muscles: Present: EOMI Conjunctiva: Present: Normal Ears: Present: NORMAL TM, Normal Canal. No: Erythema Mouth: Present: Moist Mucous Membranes Nose (External): Present: Atraumatic. No: Abrasion, Contusion, Laceration Nose (Internal): Present: Normal Inspection, No Active Bleeding. No: Rhinorrhea , Septal Hematoma, Epistaxis Neck: Present: Normal Range of Motion Respiratory/Chest: Present: Clear to Auscultation, Good Air Exchange. No: Respiratory Distress, Accessory Muscle Use Cardiovascular: Present: Regular Rate and Rhythm, Normal S1, S2. No: Murmurs Abdomen: No: Tenderness, Distention, Peritoneal Signs, Rebound, Guarding Back: Present: Normal Inspection Upper Extremity: Present: Normal Inspection, Normal ROM, Neurovascularly Intact , Capillary Refill < 2s. No: Cyanosis, Edema, Deformity Lower Extremity: Present: Normal Inspection, NORMAL PULSES, Normal ROM, Neurovascularly Intact, Capillary Refill < 2 s. No: Edema, CALF TENDERNESS, Dc's Sign, Tenderness, Swelling, Deformity Neurological: Present: GCS=15, CN II-XII Intact, Speech Normal, Motor Func Grossly Intact, Gait Normal, Memory Normal, Other (+william melton pike test, no focal neurological deficits, normal finger to nose test, normal heel to hancock test. ) Skin: Present: Warm, Dry, Normal Color. No: Rashes Psychiatric: Present: Alert, Oriented x 3, Normal Insight, Normal Concentration <Americo Daniesl Q - Last Filed: 11/16/17 09:12> Vital Signs Temp Pulse Resp BP Pulse Ox 11/14/17 02:54 98.0 F 84 18 146/74 100 11/14/17 02:21 84 18 146/74 100 11/14/17 01:34 105 H 17 157/54 H 98 11/13/17 21:30 98 F 87 19 122/84 100 Medical Decision Making <Mick Cruz Filed: 11/13/17 22:44> - Lab Interpretations I have reviewed the lab results: Yes - RAD Interpretation Glue Drier Operator: Radiologist - EKG Interpretation Interpreted by ED Physician: Yes Type: 12 lead EKG <Americo Daniels - Last Filed: 11/16/17 09:12> ED Course and Treatment: 11/13/17 22:18 Differential; vertigo vs. dehydration vs. UTI vs. cardiac arrythmia -labs/ua -ekg -IVF/meclizine -Observe and reassess 11/14/17 00:09 -Pt. still feeling dizziness with room spinning, fluid 500cc bolus and CT head ordered. 11/14/17 02:02 -Pt. stated that she hasn't eating all day, glucose 65, symptomatic, dextrose ordered. 11/14/17 02:51 - is negative -EKG: NSR @ 69 BPM, no ST elevation or depression, no T wave inversion -CT Head show no acute finding -Labs show no acute findings -UA show no UTI -Pt. stated that she has not have any food/drinks, food and drinks offered to her. -Repeated FS 74 -Pt. advised to bring bottle of juice and candy bars with her for prevention of hypoglycemia. -Pt. feels much better, walking around, discussed with Dr. Cruz about the case and agreed on the dispo. -Discharge home with meclizine, stay hydrated, bed rest, follow up with your own pmd/ENT and neurologist within 2 days, return to the ER for any new or worsening signs or symptoms. (Americo Daniels) - Lab Interpretations Lab Results: 11/13/17 22:24 11/13/17 22:24 Lab Results 11/14/17 02:27: POC Glucose (mg/dL) 49 L 11/14/17 01:17: POC Glucose (mg/dL) 65 11/13/17 22:24: WBC 7.0 D, RBC 4.79, Hgb 13.2, Hct 38.2, MCV 79.7 L, MCH 27.6, MCHC 34.6, RDW 13.4, Plt Count 225, MPV 11.6 H, Gran % 59.3, Lymph % (Auto) 24.6 , Upson % (Auto) 14.9 H, Eos % (Auto) 0.6 L, Baso % (Auto) 0.6, Gran # 4.13, Lymph # (Auto) 1.7, Upson # (Auto) 1.0 H, Eos # (Auto) 0.0, Baso # (Auto) 0.04 11/13/17 22:24: Sodium 140, Potassium 3.7, Chloride 102, Carbon Dioxide 27, Anion Gap 16, BUN 15, Creatinine 0.8, Est GFR ( Amer) > 60, Est GFR (Non- Af Amer) > 60, Random Glucose 73, Calcium 10.0, Magnesium 1.9, Total Bilirubin 0.3, AST 26, ALT 15, Alkaline Phosphatase 49, Total Protein 7.6, Albumin 4.5, Globulin 3.1, Albumin/Globulin Ratio 1.5 11/13/17 22:24: Urine Color Yellow, Urine Appearance Clear, Urine pH 7.5, Ur Specific [place] 1.010, Urine Protein Negative, Urine Glucose (UA) Negative, Urine Ketones Negative, Urine Blood Negative, Urine Nitrate Negative, Urine Bilirubin Negative, Urine Urobilinogen 0.2, Ur Leukocyte Esterase Negative - RAD Interpretation Radiology Orders: 11/14/17 00:08 HEAD W/O CONTRAST [CT] Stat Brain: Unremarkable. No hemorrhage. No significant white matter disease. No edema. Ventricles: Unremarkable. No ventriculomegaly. Bones/joints: Unremarkable. No acute fracture. Soft tissues: Unremarkable. Sinuses: Unremarkable as visualized. No acute sinusitis. Mastoid air cells: Unremarkable as visualized. No mastoid effusion. Other findings: No acute findings. IMPRESSION: No acute findings. Thank you for allowing us to participate in the care of your patient. Dictated and Authenticated by: Zoraida Estrada MD 11/14/2017 1:54 AM Eastern Time ([place] & [place]) (Americo Daniels) - EKG Interpretation EKG Interpretation (Text): 11/14/17 02:04 NSR @ 69 BPM, no ST elevation or depression, no T wave inversion (Americo Daniels) - Medication Orders Current Medication Orders: Discontinued Medications Dextrose (Dextrose 50% Inj) 50 ml IVP STAT STA Stop: 11/14/17 01:27 Last Admin: 11/14/17 01:46 Dose: 50 ml IVP Administration Document 11/14/17 01:46 IT (Rec: 11/14/17 01:46 IT [facility] [id number]) Charges for Administration # of IVP Administrations 1 Sodium Chloride (Sodium Chloride 0.9%) 1,000 mls @ 999 mls/hr IV .Q1H1M STA Stop: 11/13/17 23:13 Last Admin: 11/13/17 22:53 Dose: 999 mls/hr eMAR Start Stop Document 11/13/17 22:53 IT (Rec: 11/13/17 22:53 IT [facility] [id number]) Intravenous Solution Start Date 11/13/17 Start Time 22:53 Sodium Chloride (Sodium Chloride 0.9%) 500 mls @ 999 mls/hr IV .Q31M STA Stop: 11/14/17 00:38 Last Admin: 11/14/17 00:57 Dose: 999 mls/hr eMAR Start Stop Document 11/14/17 00:57 IT (Rec: 11/14/17 00:57 IT [facility] [id number]) Intravenous Solution Start Date 11/14/17 Start Time 00:57 Meclizine HCl (Antivert) 50 mg PO STAT STA Stop: 11/13/17 22:14 Last Admin: 11/13/17 22:53 Dose: 50 mg - PA / FINISHING AREA OPERATOR / Resident Statement ROBBIE has reviewed & agrees with the documentation as recorded. ROBBIE has examined the patient and agrees with the treatment plan. <Mick Cruz - Last Filed: 11/13/17 22:44> - PA / FINISHING AREA OPERATOR / Resident Statement ROBBIE has reviewed & agrees with the documentation as recorded. ROBBIE has examined the patient and agrees with the treatment plan. <Americo Daniels - Last Filed: 11/16/17 09:12> Disposition/Present on Arrival <Mick Cruz - Last Filed: 11/13/17 22:44> - Present on Arrival Any Indicators Present on Arrival: No History of DVT/PE: No History of Uncontrolled Diabetes: No Urinary Catheter: No History of Decub. Ulcer: No History Surgical Site Infection Following: None - Disposition Have Diagnosis and Disposition been Completed?: Yes Disposition Time: 22:33 Patient Plan: Discharge <Americo Daniels - Last Filed: 11/16/17 09:12> - Disposition Diagnosis: Vertigo Disposition: HOME/ ROUTINE Condition: IMPROVED Additional Instructions: -Discharge home with meclizine, stay hydrated, bed rest, follow up with your own pmd/ENT and neurologist within 2 days, return to the ER for any new or worsening signs or symptoms. Prescriptions: Meclizine [Meclizine*] 25 mg PO Q6 #30 tab Referrals: Marc Ynag MD [Staff Provider] - Follow up with primary Shyla Escobar MD [Primary Care Provider] - Follow up with primary Lauro Briseno DO [Staff Provider] - Follow up with primary Forms: WORK NOTE
[2017-11-13 22:39] LABS: BASO # 0.04 K/mm3 (0.0-2.0); BASO % 0.6 % (0.0-3.0); EOS % 0.6 % (1.5-5.0); GRAN # 4.13 (1.4-6.5); GRAN % 59.3 % (50.0-68.0); HEMOGLOBIN 13.2 g/dL (12.0-16.0); LYMPH # 1.7 (1.2-3.4); LYMPH % 24.6 % (22.0-35.0); MEAN CELL VOLUME 79.7 fl (80.0-105.0); MEAN CORPUSCULAR HEMOGLOBIN 27.6 pg (25.0-35.0); MEAN CORPUSCULAR HGB CONC 34.6 g/dl (31.0-37.0); MEAN PLATELET VOLUME 11.6 fl (7.0-11.0); MONO % 14.9 % (1.0-6.0); RBC 4.79 10^6/uL (3.5-6.1); RED CELL DISTRIBUTION WIDTH 13.4 % (11.5-14.5)
[2017-11-13 22:40] LABS: PH,URINE 7.5 (4.7-8.0); URINE APPEARANCE CLEAR (CLEAR); URINE BILIRUBIN NEGATIVE (NEGATIVE); URINE BLOOD NEGATIVE (NEGATIVE); URINE COLOR YELLOW (YELLOW); URINE GLUCOSE (UA) NEGATIVE (NEGATIVE); URINE LEUKOCYTE ESTERASE NEGATIVE Leu/uL (NEGATIVE); URINE PROTEIN NEGATIVE mg/dL (<30 mg/dL); URINE UROBILINOGEN 0.2 E.U./dL (<1 E.U./dL)
[2017-11-13 22:48] LABS: ALB/GLOB RATIO 1.5 (1.1-1.8); ALBUMIN 4.5 g/dL (3.0-4.8); ALT/SGPT 15 U/L (7-56); AST/SGOT 26 U/L (14-36); BLOOD UREA NITROGEN 15 mg/dL (7-21); GFR AFRICAN-AMERICAN > 60; GFR NON-AFRICAN AMERICAN > 60
[2017-11-14] MEDS ORDERED: Sodium Chloride 0.9% 500 ML IV STA (00:08)
[2017-11-14] MEDS ORDERED: Dextrose 50% SYRINGE Inj (50 ml) IVP STA (01:26)
[2017-11-14 02:24] VITALS: BP 146/74; PULSE 84; RESP 18; O2SAT 100
[2017-11-14 03:55] VITALS: TEMP 98
--- NOTE | 2017-11-14 12:15 | CARD ---
APPROVED REPORT Date of service: 11/13/2017 EKG Measurement Heart [id number] <Conclusion> Normal sinus rhythm Possible Left atrial enlargement Septal infarct, age undetermined Abnormal ECG
--- NOTE | 2017-11-14 14:56 | CT ---
Date of service: 11/14/2017 PROCEDURE: CT HEAD WITHOUT CONTRAST. HISTORY: dizziness, r/o tumor COMPARISON: None available. TECHNIQUE: Axial computed tomography images were obtained through the head/brain without intravenous contrast. Radiation dose: Total exam DLP = 761.63 mGy-cm. This CT exam was performed using one or more of the following dose reduction techniques: Automated exposure control, adjustment of the mA and/or kV according to patient size, and/or use of iterative reconstruction technique. FINDINGS: HEMORRHAGE: No intracranial hemorrhage. BRAIN: Steele-white matter differentiation is preserved. There is no mass, mass effect or abnormal extra-axial fluid collection. There is no territorial infarction. The midline sagittal structures are normal. VENTRICLES: The ventricles are normal in size, shape and configuration. CALVARIUM: There is no calvarial fracture or extracranial soft tissue swelling. PARANASAL SINUSES: Predominantly clear. MASTOID AIR CELLS: Predominantly clear. OTHER FINDINGS: None. IMPRESSION: No acute intracranial abnormality.
== END 2017-11-14 02:54 | disposition home or self-care (01) ==
LOC: ED 20:51
DX: R42 Dizziness and giddiness (principal)
CPT/HCPCS: 70450; 80053; 81003; 82948; 83735; 85025; 93005; 96374; 99285; J7030; J7040

== ENCOUNTER 2018-02-28 22:54 | Emergency (ER) | payer BC ==
[2018-02-28 22:55] VITALS: BMI 18.6
--- NOTE | 2018-02-28 23:31 | ED PDOC ---
Arrival/HPI - History of Present Illness Narrative History of Present Illness (Text): 02/28/18 23:27 27 year old female, with PMH of anxiety, esophagitis, medullary sponge kidney disease, factor XI and XII deficiency, and 3 first trimester spontaneous , presents to the ED c/o left-sided abdominal x 1 day. Describes pain as sharp and stabbing, with radiation across to left side of abdomen. Not made worse with movement or eating. Associated with mild intermittent nausea. Currently menstruating, started 02/25. Took 2 Advil this afternoon without relief. Denies fevers, chills, diarrhea, constipation, vomiting, urinary symptoms, back pain, headache, chest pain, SOB, pelvic pain. <Polina Hargrove - Last Filed: 03/01/18 01:43> <Mick Cruz - Last Filed: 03/01/18 03:50> - General Chief Complaint: Abdominal Pain Time Seen by Provider: 02/28/18 23:24 Past Medical History - Provider Review Nursing Documentation Reviewed: Yes - Past History Past History: No Previous - Infectious Disease Hx of Infectious Diseases: None - Tetanus Immunization Tetanus Immunization: Unknown - Cardiac Hx Cardiac Disorders: No - Pulmonary Hx Respiratory Disorders: No - Neurological Hx Neurological Disorder: No - HEENT Hx HEENT Disorder: No - Renal Hx Renal Disorder: Yes Other/Comment: BLOOD IN URINE, MSK (medullary sponge kidney) - Endocrine/Metabolic Hx Endocrine Disorders: Yes Other/Comment: Hypoglycemia - Hematological/Oncological Hx Blood Disorders: Yes Other/Comment: Factor XI, Factor XII - Integumentary Hx Dermatological Disorder: No - Musculoskeletal/Rheumatological Hx Musculoskeletal Disorders: No - Gastrointestinal Hx Gastroesophageal Reflux: Yes Hx Irritable Bowel: Yes Other/Comment: esophagitis - Genitourinary/Gynecological Hx Genitourinary Disorders: No - Psychiatric Hx Psychophysiologic Disorder: Yes Hx Anxiety: Yes Hx Panic Disorder: Yes Hx Substance Use: Yes - Surgical History Hx Appendectomy: Yes Hx Dilation and Curettage: Yes (3) Other/Comment: CYSTOSCOPY, 2X - Anesthesia Hx Anesthesia: Yes Hx Anesthesia Reactions: No Hx Malignant Hyperthermia: No <Polina Hargrove - Last Filed: 03/01/18 01:43> Family/Social History - Physician Review Nursing Documentation Reviewed: Yes Family/Social History: No Known Family HX Smoking Status: Never Smoked Hx Alcohol Use: No Hx Substance Use: Yes <Polina Hargrove - Last Filed: 03/01/18 01:43> Allergies/Home Meds <Polina Hargrove - Last Filed: 03/01/18 01:43> <Mick Cruz - Last Filed: 03/01/18 03:50> Allergies/Adverse Reactions: Allergies acetaminophen Allergy (Verified 11/13/17 21:37) ANAPHYLAXIS amoxicillin Allergy (Verified 11/13/17 21:37) URTICARIA ciprofloxacin [From Cipro] Allergy (Verified 11/13/17 21:37) URTICARIA ciprofloxacin HCl [From Cipro] Allergy (Verified 11/13/17 21:37) URTICARIA doxycycline Allergy (Verified 11/13/17 21:37) URTICARIA Penicillins Allergy (Verified 11/13/17 21:37) URTICARIA phenytoin sodium [From Dilantin] Allergy (Verified 11/13/17 21:37) URTICARIA phenytoin sodium extended [From Dilantin] Allergy (Verified 11/13/17 21:37) URTICARIA sulfamethoxazole [From Bactrim] Allergy (Verified 11/13/17 21:37) URTICARIA trimethoprim [From Bactrim] Allergy (Verified 11/13/17 21:37) URTICARIA Home Medications: Home Meds Medication Instructions Recorded Confirmed QUEtiapine [Seroquel XR] 50 mg PO HS 05/06/16 11/13/17 Clonazepam [Klonopin] 0.5 mg PO PRN PRN 03/19/17 11/13/17 Bismuth Subsalicylate [Pepto 262 mg PO DAILY 05/22/17 11/13/17 Bismol] Loperamide HCl [Imodium A-D] 2 mg PO DAILY PRN 11/13/17 11/13/17 Review of Systems - Physician Review All systems were reviewed & negative as marked: Yes - Review of Systems Constitutional: Normal Eyes: Normal. absent: Vision Changes ENT: Normal Respiratory: Normal. absent: SOB, Cough Cardiovascular: Normal. absent: Chest Pain, Palpitations Gastrointestinal: Abdominal Pain, Nausea, Appetite Changes (decreased). absent: Stool Changes, Constipation, Diarrhea, Vomiting Genitourinary Female: Vaginal Bleeding (currently menstruating). absent: Dysuria, Frequency, Hematuria, Urine Output Changes, Vaginal Discharge Musculoskeletal: Normal. absent: Back Pain, Neck Pain Skin: Normal. absent: Rash, Cellulitis Neurological: Normal. absent: Headache, Dizziness Endocrine: Normal Hemo/Lymphatic: Normal Psychiatric: Normal <Polina Hargrove - Last Filed: 03/01/18 01:43> Physical Exam Vital Signs Reviewed: Yes Temperature: Afebrile Blood Pressure: Normal Pulse: Regular Respiratory Rate: Normal Appearance: Positive for: Well-Appearing, Non-Toxic, Comfortable Pain Distress: None Mental Status: Positive for: Alert and Oriented X 3 - Systems Exam Head: Present: Atraumatic, Normocephalic Pupils: Present: PERRL Extroacular Muscles: Present: EOMI Conjunctiva: Present: Normal Mouth: Present: Moist Mucous Membranes Neck: Present: Normal Range of Motion Respiratory/Chest: Present: Clear to Auscultation, Good Air Exchange. No: Respiratory Distress, Accessory Muscle Use Cardiovascular: Present: Regular Rate and Rhythm, Normal S1, S2. No: Murmurs Abdomen: Present: Tenderness (moderate, Left upper and left middle abdomen), Normal Bowel Sounds. No: Distention, Peritoneal Signs, Rebound, Guarding Back: Present: Normal Inspection. No: CVA Tenderness Upper Extremity: Present: Normal Inspection. No: Cyanosis, Edema Lower Extremity: Present: Normal Inspection. No: Edema Neurological: Present: GCS=15, CN II-XII Intact, Speech Normal Skin: Present: Warm, Dry, Normal Color. No: Rashes Psychiatric: Present: Alert, Oriented x 3, Normal Insight, Normal Concentration <Polina Hargrove - Last Filed: 03/01/18 01:43> Medical Decision Making ED Course and Treatment: 03/01/18 23:30 Initial Plan: * CBC, CMP, Lipase * UA, culture * Zofran * Pepcid * CT Abd/Pelvis 03/01/18 01:00 Pt reports decreased in pain and nausea after medications 03/01/18 02:13 Will endorse pt to Dr. Cruz, pending CT. Pt aware of change in provider. Pt sleeping soundly in stretcher, stable. <Polina Hargrove - Last Filed: 03/01/18 01:43> ED Course and Treatment: 03/01/18 03:40 CT Abdomen and Pelvis reviewed, shows: Prior appendectomy. The liver is of uniform attenuation without mass or defect. There is no intra or extrahepatic biliary ductal dilatation. The spleen is normal. The gallbladder is within normal limits. The pancreas is of normal contour and attenuation characteristics. There is no evidence of adrenal mass. Both kidneys demonstrate prompt and equal nephrograms. The kidneys are normal in size, shape and configuration. There is no evidence of renal or ureteral mass. No renal or ureteral calculi are identified. There is no hydroureter or hydronephrosis. No evidence for appendicitis. There is no bowel wall thickening. No evidence for small or large bowel obstruction. There is no evidence of abdominal ascites or lymphadenopathy. There is no evidence of intrinsic or extrinsic bladder mass. There is no pelvic ascites or lymphadenopathy. Images of the lung bases show no evidence of pleural or parenchymal mass. There are no pleural effusions. The bony structures are free of lytic or blastic lesions. IMPRESSION: No evidence of acute abdominal or pelvic pathology. Thank you for your kind referral of this patient. Electronically signed on Mar 01, 2018 3:30:01 AM EST by: Christiana Sevilla M.D., Certified by ROBERT, MSK, Neuroradiology - Lab Interpretations Lab Results: 02/28/18 23:45 02/28/18 23:45 Lab Results 02/28/18 23:45: Urine Color Straw, Urine Appearance Clear, Urine pH 6.5, Ur Specific [place] 1.010, Urine Protein Negative, Urine Glucose (UA) Negative, Urine Ketones Negative, Urine Blood Negative, Urine Nitrate Negative, Urine Bilirubin Negative, Urine Urobilinogen 0.2, Ur Leukocyte Esterase Negative 02/28/18 23:45: Sodium 140, Potassium 4.1, Chloride 103, Carbon Dioxide 26, Anion Gap 15, BUN 11, Creatinine 0.8, Est GFR ( Amer) > 60, Est GFR (Non- Af Amer) > 60, Random Glucose 80, Calcium 10.0, Total Bilirubin 0.5, AST 28, ALT 16, Alkaline Phosphatase 58, Total Protein 7.8, Albumin 4.6, Globulin 3.2, Albumin/Globulin Ratio 1.4, Lipase 130 02/28/18 23:45: WBC 5.8, RBC 4.79, Hgb 13.5, Hct 39.4, MCV 82.3, MCH 28.2, MCHC 34.3, RDW 12.8, Plt Count 259, MPV 11.8 H, Gran % 62.6, Lymph % (Auto) 26.3, Yates % (Auto) 10.1 H, Eos % (Auto) 0.5 L, Baso % (Auto) 0.5, Gran # 3.60, Lymph # (Auto) 1.5, Yates # (Auto) 0.6, Eos # (Auto) 0.0, Baso # (Auto) 0.03 - RAD Interpretation Radiology Orders: 03/01/18 00:25 ABD & PELVIS IV CONTRAST ONLY [CT] Stat - Medication Orders Current Medication Orders: Sodium Chloride (Sodium Chloride 0.9%) 1,000 mls @ 999 mls/hr IV .Q1H1M STA Stop: 03/01/18 00:37 Last Admin: 03/01/18 00:10 Dose: 999 mls/hr eMAR Start Stop Document 03/01/18 00:10 SS [id number]venous Solution Start Date 03/01/18 Start Time 00:12 End Date 03/01/18 End time 01:12 Total Infusion Time 60 Discontinued Medications Famotidine (Pepcid) 20 mg IVP STAT STA Stop: 02/28/18 23:32 Last Admin: 03/01/18 00:12 Dose: 20 mg IVP Administration Document 03/01/18 00:12 SS (Rec: 03/01/18 00:12 [id number] Charges for Administration # of IVP Administrations 1 Ondansetron HCl (Zofran Inj) 4 mg IVP STAT STA Stop: 02/28/18 23:32 Last Admin: 03/01/18 00:12 Dose: 4 mg IVP Administration Document 03/01/18 00:12 SS (Rec: 03/01/18 00:12 [id number] Charges for Administration # of IVP Administrations 1 <Mick Cruz - Last Filed: 03/01/18 03:50> - PA / [employer] / Resident Statement ROBBIE has reviewed & agrees with the documentation as recorded. ROBBIE has examined the patient and agrees with the treatment plan. <Mick Cruz - Last Filed: 03/01/18 03:50> Disposition/Present on Arrival - Present on Arrival Any Indicators Present on Arrival: No History of DVT/PE: No History of Uncontrolled Diabetes: No Urinary Catheter: No History of Decub. Ulcer: No History Surgical Site Infection Following: None - Disposition Have Diagnosis and Disposition been Completed?: No Disposition Time: 02:00 <Polina Hargrove - Last Filed: 03/01/18 01:43> - Present on Arrival Any Indicators Present on Arrival: No - Disposition Have Diagnosis and Disposition been Completed?: Yes Disposition Time: 03:47 Patient Plan: Discharge <Mick Cruz - Last Filed: 03/01/18 03:50> - Disposition Diagnosis: Abdominal pain, Gastritis Disposition: HOME/ ROUTINE Patient Problems: Current Active Problems Problem Status Onset Abdominal pain Acute Condition: GOOD Discharge Instructions (ExitCare): Gastritis (DC) Additional Instructions: Take meds as prescribed/follow up with your marketing proposal specialist this week Prescriptions: Pantoprazole [Protonix] 40 mg PO DAILY #10 ect Ondansetron [Zofran Odt] 4 mg PO Q6 PRN #10 odt PRN Reason: Nausea/Vomiting Forms: [facility] (E[place]ian), SCHOOL NOTE
[2018-02-28] MEDS ORDERED: Sodium Chloride 0.9% 1,000 ML IV STA (23:37)
[2018-03-01 00:01] LABS: BASO # 0.03 K/mm3 (0.0-2.0); BASO % 0.5 % (0.0-3.0); EOS % 0.5 % (1.5-5.0); GRAN # 3.6 (1.4-6.5); GRAN % 62.6 % (50.0-68.0); HEMOGLOBIN 13.5 g/dL (12.0-16.0); LYMPH # 1.5 (1.2-3.4); LYMPH % 26.3 % (22.0-35.0); MEAN CELL VOLUME 82.3 fl (80.0-105.0); MEAN CORPUSCULAR HEMOGLOBIN 28.2 pg (25.0-35.0); MEAN CORPUSCULAR HGB CONC 34.3 g/dl (31.0-37.0); MEAN PLATELET VOLUME 11.8 fl (7.0-11.0); MONO # 0.6 (0.1-0.6); MONO % 10.1 % (1.0-6.0); PH,URINE 6.5 (4.7-8.0); RBC 4.79 10^6/uL (3.5-6.1); RED CELL DISTRIBUTION WIDTH 12.8 % (11.5-14.5); URINE BILIRUBIN NEGATIVE (NEGATIVE); URINE BLOOD NEGATIVE (NEGATIVE); URINE GLUCOSE (UA) NEGATIVE (NEGATIVE); URINE LEUKOCYTE ESTERASE NEGATIVE Leu/uL (NEGATIVE); URINE PROTEIN NEGATIVE mg/dL (<30 mg/dL); URINE UROBILINOGEN 0.2 E.U./dL (<1 E.U./dL); WHITE BLOOD COUNT 5.8 10^3/uL (4.5-11.0)
[2018-03-01 00:15] LABS: ALB/GLOB RATIO 1.4 (1.1-1.8); ALBUMIN 4.6 g/dL (3.0-4.8); ALT/SGPT 16 U/L (7-56); AST/SGOT 28 U/L (14-36); BLOOD UREA NITROGEN 11 mg/dL (7-21); GFR NON-AFRICAN AMERICAN > 60; LIPASE 130 U/L (23-300); URINE APPEARANCE CLEAR (CLEAR); URINE COLOR STRAW (YELLOW)
[2018-03-01 01:06] VITALS: RESP 18; TEMP 98.9
[2018-03-01] MEDS ORDERED: Iohexol 350 MG/100 ML VIAL ONE (01:31)
[2018-03-01 06:24] VITALS: BP 124/75; PULSE 72; O2SAT 98
--- NOTE | 2018-03-01 10:32 | CT ---
Date of service: 03/01/2018 PROCEDURE: CT Abdomen and Pelvis with contrast HISTORY: abdominal pain COMPARISON: None. TECHNIQUE: Contrast dose: Radiation dose: Total exam DLP = 209.15 mGy-cm. This CT exam was performed using one or more of the following dose reduction techniques: Automated exposure control, adjustment of the mA and/or kV according to patient size, and/or use of iterative reconstruction technique. FINDINGS: LOWER THORAX: Unremarkable. LIVER: Unremarkable. No gross lesion or ductal dilatation. GALLBLADDER AND BILE DUCTS: Unremarkable. PANCREAS: Unremarkable. No gross lesion or ductal dilatation. SPLEEN: Unremarkable. ADRENALS: Unremarkable. No mass. KIDNEYS AND URETERS: Unremarkable. No hydronephrosis. No solid mass. VASCULATURE: Unremarkable. No aortic aneurysm. No aortic atherosclerotic calcification or mural plaque present. BOWEL: Unremarkable. No obstruction. No gross mural thickening. APPENDIX: Normal appendix. PERITONEUM: Unremarkable. No free fluid. No free air. LYMPH NODES: Unremarkable. No enlarged lymph nodes. BLADDER: Unremarkable. REPRODUCTIVE: Small bilateral ovarian cysts BONES: No acute fracture. OTHER FINDINGS: The report concurs with the preliminary [facility] report IMPRESSION: Unremarkable contrast enhanced CT of the abdomen and pelvis.
== END 2018-03-01 06:24 | disposition home or self-care (01) ==
LOC: ED 22:54
DX: K29.70 Gastritis, unspecified, without bleeding (principal); R10.9 Unspecified abdominal pain
CPT/HCPCS: 74177; 80053; 81003; 83690; 85025; 87086; 96361; 96374; 96375; 99284; J2405; J7030; Q9967